=== PATIENT | female | born 1990 | race American Indian/Alaskan Native ===

== ENCOUNTER 2017-08-22 17:29 | Inpatient (IN) | payer OTHER ==
[2017-08-22 18:56] LABS: Basophils % (Auto) 0.2 % (0.0-1.8); Hemoglobin 14.3 gm/dl (10.1-14.3); Mean Corpuscular HGB Conc 32 % (30-34); Mean Corpuscular Hemoglobin 26 pg (28-32); Mean Corpuscular Volume 81 fl (79-97); Platelet Count 320 K/mm3 (140-440); Red Blood Count 5.41 M/mm3 (3.65-5.03); Red Cell Distribution Width 14.4 % (13.2-15.2); White Blood Count 18.6 K/mm3 (4.5-11.0)
[2017-08-22 19:06] LABS: Alanine Aminotransferase 108 units/L (7-56); Albumin 4.2 g/dL (3.9-5); Albumin/Globulin Ratio 1.1 %; Alkaline Phosphatase 130 units/L (35-129); BUN/Creatinine Ratio 23; Blood Urea Nitrogen 16 mg/dL (7-17); Calcium 9.4 mg/dL (8.4-10.2); Carbon Dioxide 25 mmol/L (22-30); Glucose 138 mg/dL (65-100); Total Protein 8.2 g/dL (6.3-8.2)
[2017-08-22 19:07] LABS: Anion Gap 20 mmol/L; Potassium 3.8 mmol/L (3.6-5.0); Sodium 136 mmol/L (137-145)
[2017-08-22 19:57] LABS: Lipase 858 units/L (13-60)
[2017-08-23] MEDS ORDERED: MORPHINE IV ONE (00:25)
[2017-08-23] MEDS ORDERED: NACL 0.9% 1000 ML 1,000 ML IV ONE ×2 (00:25→13:50)
[2017-08-23] MEDS ORDERED: ZOFRAN IV ONE (00:26)
--- NOTE | 2017-08-23 00:41 | Emergency Department Report ---
ED Abdominal Pain HPI - General Chief Complaint: Abdominal Pain Stated Complaint: ABD.,BACK PAIN,N/V Time Seen by Provider: 08/23/17 00:25 Source: patient Mode of arrival: Ambulatory Limitations: No Limitations - History of Present Illness Initial Comments: 27-year-old female past medical history diabetes uncontrolled, PCOS, obesity presents with complaint of one day of worsening abdominal pain radiating to the back with associated nausea and vomiting. Patient states that pain is intermittent sharp burning located in her epigastric region. Denies chest pain shortness of breath diarrhea. No recent travel. Pain currently 8 out of 10 MD Complaint: abdominal pain -: This morning Location: epigastric Radiation: epigastric Severity: severe Severity scale (0 -10): 8 Quality: sharp Consistency: intermittent - Related Data Allergies Allergy/AdvReac Type Severity Reaction Status Date / Time No Known Allergies Allergy Unverified 08/22/17 18:23 ED Review of Systems ROS: Stated complaint: ABD.,BACK PAIN,N/V Other details as noted in HPI Constitutional: denies: chills, fever Eyes: denies: eye pain, eye discharge, vision change ENT: denies: ear pain, throat pain Respiratory: denies: cough, shortness of breath, wheezing Cardiovascular: denies: chest pain, palpitations Endocrine: no symptoms reported Gastrointestinal: abdominal pain, nausea, vomiting. denies: diarrhea Genitourinary: denies: urgency, dysuria, discharge Musculoskeletal: denies: back pain, joint swelling, arthralgia Skin: denies: rash, lesions Neurological: denies: headache, weakness, paresthesias Psychiatric: denies: anxiety, depression Hematological/Lymphatic: denies: easy bleeding, easy bruising ED Past Medical Hx - Past Medical History Previous Medical History?: Yes Hx Diabetes: Yes - Surgical History Past Surgical History?: No - Social History Smoking Status: Never Smoker Substance Use Type: None ED Physical Exam - General Limitations: No Limitations General appearance: alert, in no apparent distress - Head Head exam: Present: atraumatic, normocephalic - Eye Eye exam: Present: normal appearance, PERRL, EOMI - ENT ENT exam: Present: mucous membranes moist - Neck Neck exam: Present: normal inspection - Respiratory Respiratory exam: Present: normal lung sounds bilaterally. Absent: respiratory distress - Cardiovascular Cardiovascular Exam: Present: regular rate, normal rhythm. Absent: systolic murmur, diastolic murmur, rubs, gallop - GI/Abdominal GI/Abdominal exam: Present: tenderness (tenderness in epigastric region on palpation), normal bowel sounds - Extremities Exam Extremities exam: Present: normal inspection - Back Exam Back exam: Present: normal inspection - Neurological Exam Neurological exam: Present: alert, oriented X3, CN II-XII intact, normal gait - Psychiatric Psychiatric exam: Present: normal affect, normal mood - Skin Skin exam: Present: warm, dry, intact, normal color. Absent: rash ED Course Vital Signs 08/22/17 18:20 Temperature 99 F Pulse Rate 101 H Respiratory 18 Rate Blood Pressure 148/85 O2 Sat by Pulse 97 Oximetry ED Medical Decision Making - Lab Data Result diagrams: 08/22/17 18:29 08/22/17 18:29 - Medical Decision Making A/P: Acute pancreatitis, abdominal pain with nausea and vomiting 1-case discussed with Dr. Holder 2-analgesia, nothing by mouth, IV fluids, antiemetics 3-pending the CT report 4- Critical care attestation.: If time is entered above; I have spent that time in minutes in the direct care of this critically ill patient, excluding procedure time. ED Disposition Clinical Impression: Elevated lipase Acute pancreatitis Qualifiers: Pancreatitis type: unspecified pancreatitis type Acute pancreatitis complication: unspecified Qualified Code(s): K85.90 - Acute pancreatitis without necrosis or infection, unspecified Is pt being admited?: No Does the pt Need Aspirin: No Condition: Stable Instructions: Abdominal Pain (ED) Referrals: PRIMARY CARE, [Primary Care Provider] - 3-5 Days
[2017-08-23 00:57] LABS: Bilirubin,Urine NEG (Negative)
[2017-08-23 00:58] LABS: Blood,Urine NEG (Negative); Ketones,Urine NEG (Negative); Leukocyte Esterase,Urine TR (Negative); Mucus,Urine FEW /HPF; Nitrite,Urine NEG (Negative); Urobilinogen,Urine < 2.0 mg/dL (<2.0)
[2017-08-23] MEDS ORDERED: NACL ONE (01:23)
--- NOTE | 2017-08-23 01:28 | Emergency Department Report ---
Chief Complaint: Abdominal Pain Stated Complaint: ABD.,BACK PAIN,N/V Time Seen by Provider: 08/23/17 00:25 - HPI History of Present Illness: 27-year-old female past medical history diabetes uncontrolled, PCOS, obesity presents with complaint of one day of worsening abdominal pain radiating to the back with associated nausea and vomiting. Patient states that pain is intermittent sharp burning located in her epigastric region. Denies chest pain shortness of breath diarrhea. No recent travel. Pain currently 8 out of 10 - ROS Review of Systems: Nausea vomiting and epigastric pain today - Exam Vital Signs: Vital Signs 08/22/17 08/23/17 18:20 01:03 Temperature 99 F 99.0 F Pulse Rate 101 H 89 Respiratory 18 18 Rate Blood Pressure 148/85 Blood Pressure 127/73 [Right] O2 Sat by Pulse 97 100 Oximetry Physical Exam: Epigastric pain on palpation, heart S1-S2, lungs clear to auscultation MSE screening note: Focused history and physical exam performed. Due to findings the following was ordered: Screening Assessment/Plan/Differential Dx: Abdominal pain, nausea, concern for acute pancreatitis 1- This initial assessment/diagnostic orders/clinical plan/ treatment(s) is/are subject to change based on pt's health status, clinical progression and re- assessment by fellow clinical providers in the ED. Further treatment and workup at subsequent clinical provers discretion. Patient/guardians urged not to elope from ED as their condition may be serious if not clinically assessed and managed. 2-lipase elevated will order CT with contrast of abdomen 3-analgesia, nothing by mouth, IV fluids, antiemetics 4-case briefly discussed with ED attending ED Medical Decision Making - Lab Data Result diagrams: 08/22/17 18:29 08/22/17 18:29 ED Disposition for MSE Clinical Impression: Elevated lipase Acute pancreatitis Qualifiers: Pancreatitis type: unspecified pancreatitis type Acute pancreatitis complication: unspecified Qualified Code(s): K85.90 - Acute pancreatitis without necrosis or infection, unspecified Condition: Stable Instructions: Abdominal Pain (ED) Referrals: PRIMARY CARE, [Primary Care Provider] - 3-5 Days
--- NOTE | 2017-08-23 02:02 | Cat Scan Report ---
FINAL REPORT EXAM: CT ABDOMEN PELVIS W CON HISTORY: ? pancreatitis elevated lfts, lipase, epigastric p TECHNIQUE: Routine axial imaging was obtained of the abdomen and pelvis following the intravenous injection of 100 cc of Omnipaque 350. Sagittal and coronal reconstructions were reviewed along with axial delayed images. FINDINGS: The lung bases are clear. Pleural fluid is not seen. There are inflammatory changes around the entire pancreas consisting of peripancreatic edema. The findings are compatible with acute pancreatitis. There is no evidence of pancreatic necrosis or pseudocyst. The gallbladder is normal in size and contains multiple stones. There are no secondary signs of acute cholecystitis. There is no evidence of a stone in the biliary tree or biliary tree dilatation. The liver, adrenal glands and spleen appear normal. The kidneys enhance normally. The vascular structures enhance normally. The bowel loops are normal in caliber and course. The appendix is not enlarged. There is minimal free fluid in the cul-de-sac. The uterus and bladder appear normal. The skeletal structures appear well maintained. IMPRESSION: Acute pancreatitis. No evidence of pancreatic necrosis or pseudocyst. Gallstones. No secondary signs of acute cholecystitis or biliary tree dilatation. Minimal free fluid in the cul-de-sac.
--- NOTE | 2017-08-23 02:03 | Emergency Department Report ---
ED General Adult HPI - General Chief complaint: Abdominal Pain Stated complaint: ABD.,BACK PAIN,N/V Time Seen by Provider: 08/23/17 00:25 Source: patient Mode of arrival: Ambulatory Limitations: No Limitations - History of Present Illness Initial comments: Patient is a 27-year-old female past medical history of obesity who presents with abdominal pain. She says that she has had some nausea and abdominal pain that radiates to her back the pain as a 9 out of 10 as an achy type of pain nothing makes it better or worse. She it is located above her arm like us it was gradual and now is constant. She also states that she has had some nausea and several episodes of vomiting. Her vomit has been nonbloody and nonbilious. She denies any chest pain. She also denies any excessive drinking. Severity scale (0 -10): 3 - Related Data Allergies Allergy/AdvReac Type Severity Reaction Status Date / Time No Known Allergies Allergy Verified 08/23/17 01:22 ED Review of Systems ROS: Stated complaint: ABD.,BACK PAIN,N/V Other details as noted in HPI Constitutional: denies: chills, fever Eyes: denies: eye pain, eye discharge, vision change ENT: denies: ear pain, throat pain Respiratory: denies: cough, shortness of breath, wheezing Cardiovascular: denies: chest pain, palpitations Endocrine: no symptoms reported Gastrointestinal: abdominal pain, nausea, vomiting. denies: diarrhea Genitourinary: denies: urgency, dysuria, discharge Musculoskeletal: denies: back pain, joint swelling, arthralgia Skin: denies: rash, lesions Neurological: denies: headache, weakness, paresthesias Psychiatric: denies: anxiety, depression Hematological/Lymphatic: denies: easy bleeding, easy bruising ED Past Medical Hx - Past Medical History Previous Medical History?: Yes Hx Diabetes: Yes - Surgical History Past Surgical History?: No - Social History Smoking Status: Never Smoker Substance Use Type: None ED Physical Exam - General Limitations: No Limitations General appearance: alert, in no apparent distress - Head Head exam: Present: atraumatic, normocephalic - Eye Eye exam: Present: normal appearance - ENT ENT exam: Present: mucous membranes moist - Neck Neck exam: Present: normal inspection - Respiratory Respiratory exam: Present: normal lung sounds bilaterally. Absent: respiratory distress - Cardiovascular Cardiovascular Exam: Present: regular rate, normal rhythm. Absent: systolic murmur, diastolic murmur, rubs, gallop - GI/Abdominal GI/Abdominal exam: Present: soft, tenderness, normal bowel sounds - Extremities Exam Extremities exam: Present: normal inspection - Back Exam Back exam: Present: normal inspection - Neurological Exam Neurological exam: Present: alert, oriented X3 - Psychiatric Psychiatric exam: Present: normal affect, normal mood - Skin Skin exam: Present: warm, dry, intact, normal color. Absent: rash ED Course Vital Signs 08/22/17 08/22/17 08/23/17 18:06 18:20 01:03 Temperature 99 F 99.0 F Pulse Rate 107 H 101 H 89 Respiratory 18 18 18 Rate Blood Pressure 148/85 148/85 Blood Pressure 127/73 [Right] O2 Sat by Pulse 98 97 100 Oximetry 08/23/17 08/23/17 01:19 02:14 Temperature Pulse Rate Respiratory 18 Rate Blood Pressure Blood Pressure [Right] O2 Sat by Pulse 99 99 Oximetry ED Medical Decision Making - Lab Data Result diagrams: 08/22/17 18:29 08/22/17 18:29 Lab Results 08/22/17 08/22/17 08/23/17 Range/Units 18:29 18:29 00:38 WBC 18.6 H (4.5-11.0) K/mm3 RBC 5.41 H (3.65-5.03) M/mm3 Hgb 14.3 (10.1-14.3) gm/dl Hct 44.0 H (30.3-42.9) % MCV 81 (79-97) fl MCH 26 L (28-32) pg MCHC 32 (30-34) % RDW 14.4 (13.2-15.2) % Plt Count 320 (140-440) K/mm3 Lymph % (Auto) 8.5 L (13.4-35.0) % [place] % (Auto) 6.5 (0.0-7.3) % Eos % (Auto) 0.0 (0.0-4.3) % Baso % (Auto) 0.2 (0.0-1.8) % Lymph # 1.6 (1.2-5.4) K/mm3 [place] # 1.2 H (0.0-0.8) K/mm3 Eos # 0.0 (0.0-0.4) K/mm3 Baso # 0.0 (0.0-0.1) K/mm3 Seg Neutrophils % 84.8 H (40.0-70.0) % Seg Neutrophils # 15.7 H (1.8-7.7) K/mm3 Sodium 136 L (137-145) mmol/L Potassium 3.8 (3.6-5.0) mmol/L Chloride 95.0 L (98-107) mmol/L Carbon Dioxide 25 (22-30) mmol/L Anion Gap 20 mmol/L BUN 16 (7-17) mg/dL Creatinine 0.7 (0.7-1.2) mg/dL Estimated GFR > 60 ml/min BUN/Creatinine Ratio 23 % Glucose 138 H (65-100) mg/dL Lactic Acid 1.70 (0.7-2.0) mmol/L Calcium 9.4 (8.4-10.2) mg/dL Total Bilirubin 0.30 (0.1-1.2) mg/dL AST 66 H (5-40) units/L ALT 108 H (7-56) units/L Alkaline Phosphatase 130 H (35-129) units/L Total Protein 8.2 (6.3-8.2) g/dL Albumin 4.2 (3.9-5) g/dL Albumin/Globulin Ratio 1.1 % Lipase 858 H (13-60) units/L Urine Color (Yellow) Urine Turbidity (Clear) Urine pH (5.0-7.0) Ur Specific [place] (1.003-1.030) Urine Protein (Negative) mg/dL Urine Glucose (UA) (Negative) mg/dL Urine Ketones (Negative) mg/dL Urine Blood (Negative) Urine Nitrite (Negative) Ur Reducing Substances Urine Bilirubin (Negative) Urine Ictotest Urine Urobilinogen (<2.0) mg/dL Ur Leukocyte Esterase (Negative) Urine WBC (Auto) (0.0-6.0) /HPF Urine RBC (Auto) (0.0-6.0) /HPF U Epithel Cells (Auto) (0-13.0) /HPF Urine WBC Clumps /HPF Hyaline Casts /LPF Urine Mucus /HPF Urine HCG, Qual (Negative) 11/30/17 11/30/17 Range/Units 00:38 Unknown WBC (4.5-11.0) K/mm3 RBC (3.65-5.03) M/mm3 Hgb (10.1-14.3) gm/dl Hct (30.3-42.9) % MCV (79-97) fl MCH (28-32) pg MCHC (30-34) % RDW (13.2-15.2) % Plt Count (140-440) K/mm3 Lymph % (Auto) (13.4-35.0) % [place] % (Auto) (0.0-7.3) % Eos % (Auto) (0.0-4.3) % Baso % (Auto) (0.0-1.8) % Lymph # (1.2-5.4) K/mm3 [place] # (0.0-0.8) K/mm3 Eos # (0.0-0.4) K/mm3 Baso # (0.0-0.1) K/mm3 Seg Neutrophils % (40.0-70.0) % Seg Neutrophils # (1.8-7.7) K/mm3 Sodium (137-145) mmol/L Potassium (3.6-5.0) mmol/L Chloride (98-107) mmol/L Carbon Dioxide (22-30) mmol/L Anion Gap mmol/L BUN (7-17) mg/dL Creatinine (0.7-1.2) mg/dL Estimated GFR ml/min BUN/Creatinine Ratio % Glucose (65-100) mg/dL Lactic Acid (0.7-2.0) mmol/L Calcium (8.4-10.2) mg/dL Total Bilirubin (0.1-1.2) mg/dL AST (5-40) units/L ALT (7-56) units/L Alkaline Phosphatase (35-129) units/L Total Protein (6.3-8.2) g/dL Albumin (3.9-5) g/dL Albumin/Globulin Ratio % Lipase 640 H (13-60) units/L Urine Color Yellow (Yellow) Urine Turbidity Clear (Clear) Urine pH 6.0 (5.0-7.0) Ur Specific [place] 1.032 H (1.003-1.030) Urine Protein 30 mg/dl (Negative) mg/dL Urine Glucose (UA) Neg (Negative) mg/dL Urine Ketones Neg (Negative) mg/dL Urine Blood Neg (Negative) Urine Nitrite Neg (Negative) Ur Reducing Substances Not Reportable Urine Bilirubin Neg (Negative) Urine Ictotest Not Reportable Urine Urobilinogen < 2.0 (<2.0) mg/dL Ur Leukocyte Esterase Tr (Negative) Urine WBC (Auto) 19.0 H (0.0-6.0) /HPF Urine RBC (Auto) 9.0 (0.0-6.0) /HPF U Epithel Cells (Auto) 80.0 H (0-13.0) /HPF Urine WBC Clumps Few /HPF Hyaline Casts 2 /LPF Urine Mucus Few /HPF Urine HCG, Qual Negative (Negative) - Radiology Data Radiology results: report reviewed, image reviewed CT scan of abdomen: Shows findings of acute pancreatitis - Medical Decision Making Chief medical diagnosis: Pancreatitis Differential medical diagnosis: UTI, GERD, cholelithiasis, cholecystitis LIPASE CBC CMP IV FLUIDS AND IV PAIN MEDICATIONS CT SCAN IS REVEALING FOR PANCREATITIS DISCUSSed with the patient that since she is still having severe abdominal pain she will be admitted to the hospital. Patient agrees with plan. Discussed case with hospitalist and hospitalist agrees with admission. Critical care attestation.: If time is entered above; I have spent that time in minutes in the direct care of this critically ill patient, excluding procedure time. ED Disposition Clinical Impression: Elevated lipase Acute pancreatitis Qualifiers: Pancreatitis type: unspecified pancreatitis type Acute pancreatitis complication: unspecified Qualified Code(s): K85.90 - Acute pancreatitis without necrosis or infection, unspecified Nausea & vomiting Qualifiers: Vomiting type: unspecified Vomiting Intractability: unspecified Qualified Code( s): R11.2 - Nausea with vomiting, unspecified Disposition: OP ADMIT IP TO THIS HOSP Is pt being admited?: Yes Does the pt Need Aspirin: No Condition: Stable Instructions: Abdominal Pain (ED) Referrals: PRIMARY CARE,MD [Primary Care Provider] - 3-5 Days
--- NOTE | 2017-08-23 02:25 | History and Physical Report ---
History of Present Illness Chief complaint: My stomach hurts History of present illness: 27 YO Female with MO, DM, Metabolic Syndrome presents to ED for evaluation. Pt states that she has experienced abdominal pain for the past 2 days with worsening symptoms over the past 12 hours. Pt states that her pain is 9/10, achy, radiates to her back, and is associated with nausea, and multiple episodes of nonbloody/non bilious vomiting. Pt states that the pain is constant , and improved with pain medication. Pt denies ETOH use, Trauma, Fever,Chills, Palpitations, CP, ingestion of food/water from new or different sources, BRBPR, unintentional weight loss, night sweats, blood in stool, hematuria, productive cough, or recent ill contacts. Pt seen and evaluated in ED and found to have evidence of sepsis, and acute pancreatitis. Pt initiated on sepsis protocol, and pain control for acute pancreatitis. Past History Past Medical History: diabetes, other (MO, Metabolic Syndrome.) Past Surgical History: No surgical history, Other (reviewed) Social history: single. denies: smoking, alcohol abuse, prescription drug abuse , IV drug use Family history: hypertension Medications and Allergies Allergies Allergy/AdvReac Type Severity Reaction Status Date / Time No Known Allergies Allergy Verified 08/23/17 01:22 Review of Systems Constitutional: no weight loss, no weight gain, no fever, no chills Ears, nose, mouth and throat: no ear pain, no ear discharge, no tinnitis, no decreased hearing, no nose pain, no nasal congestion, no nasal discharge Breasts: no change in shape, no swelling, no mass Cardiovascular: no chest pain, no orthopnea, no palpitations, no rapid/ irregular heart beat Respiratory: no cough, no cough with sputum, no excessive sputum, no hemoptysis Gastrointestinal: abdominal pain, nausea, vomiting, no change in bowel habits, no hematemesis, no coffee ground emesis, no BRBPR, no melena, no excessive gas, no jaundice, no dyspepsia/bloating, no early satiety Genitourinary Female: no pelvic pain, no flank pain, no menorrhagia, no dysuria , no urinary frequency Rectal: no pain, no incontinence, no bleeding Musculoskeletal: no neck stiffness, no neck pain, no shooting arm pain, no arm numbness/tingling, no low back pain, no shooting leg pain, no leg numbness/ tingling Integumentary: no rash, no pruritis, no redness, no sores, no wounds, no jaundice Neurological: no head injury, no transient paralysis, no paralysis, no weakness , no parathesias, no numbness, no tingling, no seizures Psychiatric: no anxiety, no memory loss, no change in sleep habits, no sleep disturbances, no insomnia, no hypersomnia, no change in appetite, no change in libido Endocrine: no cold intolerance, no heat intolerance, no polyphagia, no excessive thirst, no polydipsia, no polyuria, no nocturia Hematologic/Lymphatic: no easy bruising, no easy bleeding Allergic/Immunologic: no urticaria, no allergic rhinitis, no wheezing Exam - Constitutional Vitals: Temp Pulse Resp BP Pulse Ox 99.0 F 89 18 127/73 99 08/23/17 01:03 08/23/17 01:03 08/23/17 02:14 08/23/17 01:03 08/23/17 02:14 General appearance: Present: mild distress, obese, disheveled, malodorous - EENT Eyes: Present: PERRL ENT: hearing intact, clear oral mucosa - Neck Neck: Present: supple, normal ROM - Respiratory Respiratory effort: normal Respiratory: bilateral: CTA - Cardiovascular Rhythm: regular Heart Sounds: Present: S1 & S2 - Extremities Extremities: pulses symmetrical, No edema Peripheral Pulses: within normal limits - Abdominal General gastrointestinal: Present: soft, tender, non-distended. Absent: mass, hernia, other Localized gastrointestinal: tender: diffuse, guarding: diffuse Female genitourinary: Present: normal - Rectal Rectal Exam: normal exam-external/orifice - Integumentary Integumentary: Present: clear, warm, dry - Musculoskeletal Musculoskeletal: gait normal, strength equal bilaterally - Psychiatric Psychiatric: appropriate mood/affect, intact judgment & insight - Neurologic Neurologic: CNII-XII intact, moves all extremities Results - Labs CBC & Chem 7: 08/22/17 18:29 08/22/17 18:29 Labs: Abnormal lab results 08/22/17 08/22/17 08/23/17 Range/Units 18:29 18:29 00:38 WBC 18.6 H (4.5-11.0) K/mm3 RBC 5.41 H (3.65-5.03) M/mm3 Hct 44.0 H (30.3-42.9) % MCH 26 L (28-32) pg Lymph % (Auto) 8.5 L (13.4-35.0) % [place] # 1.2 H (0.0-0.8) K/mm3 Seg Neutrophils % 84.8 H (40.0-70.0) % Seg Neutrophils # 15.7 H (1.8-7.7) K/mm3 Sodium 136 L (137-145) mmol/L Chloride 95.0 L (98-107) mmol/L Glucose 138 H (65-100) mg/dL AST 66 H (5-40) units/L ALT 108 H (7-56) units/L Alkaline Phosphatase 130 H (35-129) units/L Lipase 858 H 640 H (13-60) units/L Ur Specific [place] (1.003-1.030) Urine WBC (Auto) (0.0-6.0) /HPF U Epithel Cells (Auto) (0-13.0) /HPF 08/23/ Range/Units Unknown WBC (4.5-11.0) K/mm3 RBC (3.65-5.03) M/mm3 Hct (30.3-42.9) % MCH (28-32) pg Lymph % (Auto) (13.4-35.0) % [place] # (0.0-0.8) K/mm3 Seg Neutrophils % (40.0-70.0) % Seg Neutrophils # (1.8-7.7) K/mm3 Sodium (137-145) mmol/L Chloride (98-107) mmol/L Glucose (65-100) mg/dL AST (5-40) units/L ALT (7-56) units/L Alkaline Phosphatase (35-129) units/L Lipase (13-60) units/L Ur Specific [place] 1.032 H (1.003-1.030) Urine WBC (Auto) 19.0 H (0.0-6.0) /HPF U Epithel Cells (Auto) 80.0 H (0-13.0) /HPF Assessment and Plan - Patient Problems (1) Acute pancreatitis Current Visit: Yes Status: Acute Qualifiers: Pancreatitis type: unspecified pancreatitis type Acute pancreatitis complication: unspecified Qualified Code(s): K85.90 - Acute pancreatitis without necrosis or infection, unspecified Plan to address problem: IVF resuscitation, CT abdomen pelvis, bowel rest, pain control, anti-emetic therapy, lipase in AM. (2) Sepsis Current Visit: Yes Status: Acute Qualifiers: Sepsis type: sepsis due to unspecified organism Qualified Code(s): A41.9 - Sepsis, unspecified organism Plan to address problem: IV abx, IVF resuscitation, monitor uop q shift, serial lactic acid levels, supportive care, blood cultures, urinalysis and cultures (3) UTI (urinary tract infection) Current Visit: Yes Status: Acute Plan to address problem: IV abx, supprotive care, monitor uop q shift. (4) Diabetes Current Visit: Yes Status: Acute Plan to address problem: ADA diet, insulin, accu check (5) DVT prophylaxis Current Visit: Yes Status: Acute
[2017-08-23] MEDS ORDERED: DULCOLAX PR PRN (02:26)
[2017-08-23] MEDS ORDERED: MILK OF MAGNESIA PO PRN (02:26)
[2017-08-23] MEDS ORDERED: TYLENOL PO PRN (02:26)
[2017-08-23] MEDS ORDERED: PROVENTIL IH PRN (02:26)
[2017-08-23] MEDS ORDERED: NACL 0.9% 1000 ML IV ONE (02:26)
--- NOTE | 2017-08-23 03:11 | Ultrasound Report ---
FINAL REPORT EXAM: US ABDOMEN LIMITED HISTORY: RUQ ? gallstone /bile duct dilation TECHNIQUE: Routine sonographic evaluation was obtained of the right upper outer quadrant. FINDINGS: The gallbladder is contracted with diffuse shadowing consistent with stones. Gutierrez sign was not elicited when scanning over the gallbladder. The common bile duct is mildly enlarged 6.5 millimeters. The pancreas is not adequately seen for evaluation. The right kidney is normal size contour and echotexture measuring 10.5 cm x 4.5 cm x 4.7 cm. Free fluid is not seen. IMPRESSION: Gallstones. Mild enlargement of the common bile duct. A distal common bile duct stone cannot be excluded given the history of pancreatitis.
[2017-08-23] MEDS ORDERED: DILAUDID ONE (04:48)
[2017-08-23] MEDS ORDERED: ZOFRAN ONE (04:49)
[2017-08-23] MEDS ORDERED: NACL 0.9% 1000 ML 1,000 ML ONE (04:50)
[2017-08-23] MEDS: DILAUDID IV PRN ×4 (04:53→20:03)
[2017-08-23] MEDS: ZOFRAN IV PRN ×3 (04:55→20:05)
[2017-08-23] MEDS: ZOSYN/NS 4.5GM/100ML 4.5 GM/100 ML VIAL IV SCH ×3 (06:23→21:59)
--- NOTE | 2017-08-23 14:25 | Progress Note ---
<ADA SPAIN - Last Filed: 08/23/17 15:07> Assessment and Plan Assessment and plan: Assessment: Patient seen and evaluated today. Is alert and oriented times 4. No acute distress noted. Pupils equal and reactive to light and accommodation. Neck is without jugular vein distension or any adenopathy. Lungs clear to auscultation bilaterally. Noted with normal heart sound, regular with S1 S2, +2 pulses throughout. No edema or tenderness noted to lower extremities but stated at home have intermittent tingling in both lower extremities. Abdomen noted to be non-distended and tender in the medial and left upper quadrants with hypoactive bowel sounds throughout. Skin warm, dry and intact. Plan: GI: Pancreatitis Continue Antibiotic Therapy NPO: Bowel Rest Pain Management GI Consult Sepsis: IVF: 1000mL NS Bolus IVF: Continuous Infusion of LR @ 125ml/hr Continue to Follow-up Lactic Acid Levels Antibiotic Therapy Diabetes: Accucheck Q6H HgA1C Diabetic Teaching and importance of being compliant with treatment regimen and foow-up care History Interval history: Patient is a 27 year old female with Past medical History of DM 2 present to the ER with complaints of abdominal pain for the past 2 days radiating to back. Symptoms associated with nausea, and multiple episodes of nonbloody/non bilious vomiting. Pt states that the pain is improving with pain medication. Pt denies ETOH use, Trauma, Fever,Chills, Palpitations, CP, ingestion of food/water from new or different sources, unintentional weight loss , night sweats, blood in stool, hematuria, productive cough, or recent ill contacts. Patient stated is diabetic and is supposed to be taking Metformin but has not be compliant with medication regimen because do not have a PCP and don' t think can afford medication. Patient also stated has not been checking blood glucose level either because do not have a blood glucose machine. Denies any polyuria, polydipsia or polyphagia but did complained of having intermittent tingling to bilateral lower extremities. Pt admitted to Med-Surg unit with diagnosis of acute pancreatitis and Sepsis with lactic acid noted at 3.90 today. Hospitalist Physical - Constitutional Vitals: Temp Pulse Resp BP Pulse Ox 98.4 F 88 16 129/72 97 08/23/17 07:23 08/23/17 07:23 08/23/17 07:23 08/23/17 07:23 08/23/17 07:23 General appearance: Present: no acute distress, mild distress, obese, disheveled , malodorous - EENT Eyes: Present: PERRL ENT: hearing intact, clear oral mucosa, dentition normal - Neck Neck: Present: normal ROM - Respiratory Respiratory effort: normal Respiratory: bilateral: CTA - Cardiovascular Rhythm: regular Heart Sounds: Present: S1 & S2. Absent: gallop, systolic murmur, diastolic murmur, rub - Extremities Extremities: pulses intact, pulses symmetrical, No edema, normal temperature, normal color, Full ROM Peripheral Pulses: within normal limits - Abdominal General gastrointestinal: soft, tender (to mid and left upper quadrants), non- distended, hypoactive bowel sounds - Integumentary Integumentary: Present: clear, warm, dry, normal turgor. Absent: jaundice, rash , pale - Psychiatric Psychiatric: appropriate mood/affect Results - Labs CBC & Chem 7: 08/22/17 18:29 08/22/17 18:29 Labs: Laboratory Last Values WBC 18.6 K/mm3 (4.5-11.0) H 08/22/17 18: RBC 5.41 M/mm3 (3.65-5.03) H 08/22/17 18: Hgb 14.3 gm/dl (10.1-14.3) 08/22/17 18: Hct 44.0 % (30.3-42.9) H 08/22/17 18: MCV 81 fl (79-97) 08/22/17 18: MCH 26 pg (28-32) L 08/22/17 18: MCHC 32 % (30-34) 08/22/17 18: RDW 14.4 % (13.2-15.2) 08/22/17 18: Plt Count 320 K/mm3 (140-440) 08/22/17 18: Lymph % (Auto) 8.5 % (13.4-35.0) L 08/22/17 18: [place] % (Auto) 6.5 % (0.0-7.3) 08/22/17 18: Eos % (Auto) 0.0 % (0.0-4.3) 08/22/17 18: Baso % (Auto) 0.2 % (0.0-1.8) 08/22/17 18: Lymph # 1.6 K/mm3 (1.2-5.4) 08/22/17 18: [place] # 1.2 K/mm3 (0.0-0.8) H 08/22/17 18: Eos # 0.0 K/mm3 (0.0-0.4) 08/22/17 18: Baso # 0.0 K/mm3 (0.0-0.1) 08/22/17 18: Seg Neutrophils % 84.8 % (40.0-70.0) H 08/22/17 18: Seg Neutrophils # 15.7 K/mm3 (1.8-7.7) H 08/22/17 18:29 Sodium 136 mmol/L (137-145) L 08/22/17 18: Potassium 3.8 mmol/L (3.6-5.0) 08/22/17 18: Chloride 95.0 mmol/L (98-107) L 08/22/17 18: Carbon Dioxide 25 mmol/L (22-30) 08/22/17 18:29 Anion Gap 20 mmol/L 08/22/17 18:29 BUN 16 mg/dL (7-17) 08/22/17 18: Creatinine 0.7 mg/dL (0.7-1.2) 08/22/17 18:29 Estimated GFR > 60 ml/min 08/22/17 18:29 BUN/Creatinine Ratio 23 % 08/22/17 18: Glucose 138 mg/dL (65-100) H 08/22/17 18:29 Lactic Acid 3.90 mmol/L (0.7-2.0) H* 08/23/17 11:07 Calcium 9.4 mg/dL (8.4-10.2) 08/22/17 18:29 Total Bilirubin 0.30 mg/dL (0.1-1.2) 08/22/17 18:29 AST 66 units/L (5-40) H 08/22/17 18:29 ALT 108 units/L (7-56) H 08/22/17 18:29 Alkaline Phosphatase 130 units/L (35-129) H 08/22/17 18:29 Total Protein 8.2 g/dL (6.3-8.2) 08/22/17 18:29 Albumin 4.2 g/dL (3.9-5) 08/22/17 18:29 Albumin/Globulin Ratio 1.1 % 08/22/17 18:29 Triglycerides 91 mg/dL (2-149) 08/23/17 11:07 Cholesterol 152 mg/dL (50-199) 08/23/17 11:07 LDL Cholesterol Direct 87 mg/dL (50-130) 08/23/17 11:07 HDL Cholesterol 47 mg/dL (40-59) 08/23/17 11:07 Cholesterol/HDL Ratio 3.23 % 08/23/17 11:07 Lipase 640 units/L (13-60) H 08/23/17 00:38 Urine Color Yellow (Yellow) 08/23/17 Unknown Urine Turbidity Clear (Clear) 08/23/17 Unknown Urine pH 6.0 (5.0-7.0) 08/23/17 Unknown Ur Specific [place] 1.032 (1.003-1.030) H 08/23/17 Unknown Urine Protein 30 mg/dl mg/dL (Negative) 08/23/17 Unknown Urine Glucose (UA) Neg mg/dL (Negative) 08/23/17 Unknown Urine Ketones Neg mg/dL (Negative) 08/23/17 Unknown Urine Blood Neg (Negative) 08/23/17 Unknown Urine Nitrite Neg (Negative) 08/23/17 Unknown Ur Reducing Substances Not Reportable 08/23/17 Unknown Urine Bilirubin Neg (Negative) 08/23/17 Unknown Urine Ictotest Not Reportable 08/23/17 Unknown Urine Urobilinogen < 2.0 mg/dL (<2.0) 08/23/17 Unknown Ur Leukocyte Esterase Tr (Negative) 08/23/17 Unknown Urine WBC (Auto) 19.0 /HPF (0.0-6.0) H 08/23/17 Unknown Urine RBC (Auto) 9.0 /HPF (0.0-6.0) 08/23/17 Unknown U Epithel Cells (Auto) 80.0 /HPF (0-13.0) H 08/23/17 Unknown Urine WBC Clumps Few /HPF 08/23/17 Unknown Hyaline Casts 2 /LPF 08/23/17 Unknown Urine Mucus Few /HPF 08/23/17 Unknown Urine HCG, Qual Negative (Negative) 08/23/17 Unknown Plasma/Serum Alcohol < 0.01 gm% (0-0.07) 08/23/17 02:46 Blood Type A POSITIVE 08/23/17 02:48 Antibody Screen Negative 08/23/17 02:48 <JOSE LUIS JERONIMO - Last Filed: 08/23/17 15:43> Assessment and Plan Assessment and plan: I saw and evaluated the patient. I agree with the findings and the plan of care as documented in the Nurse Practitioner's~note, with the following corrections and additions. No clear evidence of Sepsis, Likely SIRS secondary to Pancreatitis. Per patient has had a prior episode. Has Hirsutism, Metabolic syndrome Morbid obesity with BMI >45 -Weight loss counselling provided in detail -Recheck Lactic acid -Restart diet when able to tolerated -Continue supportive care -Will give a bolus of IVF. Plan discussed with the patient in detail Hospitalist Physical - Constitutional Vitals: Temp Pulse Resp BP Pulse Ox 98.4 F 88 16 129/72 97 08/23/17 07:23 08/23/17 07:23 08/23/17 07:23 08/23/17 07:23 08/23/17 07:23 Results - Labs CBC & Chem 7: 08/22/17 18:29 08/22/17 18:29 Labs: Laboratory Last Values WBC 18.6 K/mm3 (4.5-11.0) H 08/22/17 18:29 RBC 5.41 M/mm3 (3.65-5.03) H 08/22/17 18:29 Hgb 14.3 gm/dl (10.1-14.3) 08/22/17 18: Hct 44.0 % (30.3-42.9) H 08/22/17 18: MCV 81 fl (79-97) 08/22/17 18: MCH 26 pg (28-32) L 08/22/17 18: MCHC 32 % (30-34) 08/22/17 18: RDW 14.4 % (13.2-15.2) 08/22/17 18:29 Plt Count 320 K/mm3 (140-440) 08/22/17 18:29 Lymph % (Auto) 8.5 % (13.4-35.0) L 08/22/17 18:29 Bertie % (Auto) 6.5 % (0.0-7.3) 08/22/17 18: Eos % (Auto) 0.0 % (0.0-4.3) 08/22/17 18: Baso % (Auto) 0.2 % (0.0-1.8) 08/22/17 18: Lymph # 1.6 K/mm3 (1.2-5.4) 08/22/17 18: [place] # 1.2 K/mm3 (0.0-0.8) H 08/22/17 18: Eos # 0.0 K/mm3 (0.0-0.4) 08/22/17 18: Baso # 0.0 K/mm3 (0.0-0.1) 08/22/17 18: Seg Neutrophils % 84.8 % (40.0-70.0) H 08/22/17 18: Seg Neutrophils # 15.7 K/mm3 (1.8-7.7) H 08/22/17 18:29 Sodium 136 mmol/L (137-145) L 08/22/17 18:29 Potassium 3.8 mmol/L (3.6-5.0) 08/22/17 18: Chloride 95.0 mmol/L (98-107) L 08/22/17 18: Carbon Dioxide 25 mmol/L (22-30) 08/22/17 18: Anion Gap 20 mmol/L 08/22/17 18:29 BUN 16 mg/dL (7-17) 08/22/17 18:29 Creatinine 0.7 mg/dL (0.7-1.2) 08/22/17 18:29 Estimated GFR > 60 ml/min 08/22/17 18:29 BUN/Creatinine Ratio 23 % 08/22/17 18:29 Glucose 138 mg/dL (65-100) H 08/22/17 18:29 Lactic Acid 3.90 mmol/L (0.7-2.0) H* 08/23/17 11:07 Calcium 9.4 mg/dL (8.4-10.2) 08/22/17 18: Total Bilirubin 0.30 mg/dL (0.1-1.2) 08/22/17 18:29 AST 66 units/L (5-40) H 08/22/17 18:29 ALT 108 units/L (7-56) H 08/22/17 18:29 Alkaline Phosphatase 130 units/L (35-129) H 08/22/17 18:29 Total Protein 8.2 g/dL (6.3-8.2) 08/22/17 18:29 Albumin 4.2 g/dL (3.9-5) 08/22/17 18:29 Albumin/Globulin Ratio 1.1 % 08/22/17 18:29 Triglycerides 91 mg/dL (2-149) 08/23/17 11:07 Cholesterol 152 mg/dL (50-199) 08/23/17 11:07 LDL Cholesterol Direct 87 mg/dL (50-130) 08/23/17 11:07 HDL Cholesterol 47 mg/dL (40-59) 08/23/17 11:07 Cholesterol/HDL Ratio 3.23 % 08/23/17 11:07 Lipase 640 units/L (13-60) H 08/23/17 00:38 Urine Color Yellow (Yellow) 08/23/17 Unknown Urine Turbidity Clear (Clear) 08/23/17 Unknown Urine pH 6.0 (5.0-7.0) 08/23/17 Unknown Ur Specific [place] 1.032 (1.003-1.030) H 08/23/17 Unknown Urine Protein 30 mg/dl mg/dL (Negative) 08/23/17 Unknown Urine Glucose (UA) Neg mg/dL (Negative) 08/23/17 Unknown Urine Ketones Neg mg/dL (Negative) 08/23/17 Unknown Urine Blood Neg (Negative) 08/23/17 Unknown Urine Nitrite Neg (Negative) 08/23/17 Unknown Ur Reducing Substances Not Reportable 08/23/17 Unknown Urine Bilirubin Neg (Negative) 08/23/17 Unknown Urine Ictotest Not Reportable 08/23/17 Unknown Urine Urobilinogen < 2.0 mg/dL (<2.0) 08/23/17 Unknown Ur Leukocyte Esterase Tr (Negative) 08/23/17 Unknown Urine WBC (Auto) 19.0 /HPF (0.0-6.0) H 08/23/17 Unknown Urine RBC (Auto) 9.0 /HPF (0.0-6.0) 08/23/17 Unknown U Epithel Cells (Auto) 80.0 /HPF (0-13.0) H 08/23/17 Unknown Urine WBC Clumps Few /HPF 08/23/17 Unknown Hyaline Casts 2 /LPF 08/23/17 Unknown Urine Mucus Few /HPF 08/23/17 Unknown Urine HCG, Qual Negative (Negative) 08/23/17 Unknown Plasma/Serum Alcohol < 0.01 gm% (0-0.07) 08/23/17 02:46 Blood Type A POSITIVE 08/23/17 02:48 Antibody Screen Negative 08/23/17 02:48
[2017-08-23] MEDS: LACTATED RINGERS 1,000 ML IV SCH (14:41)
[2017-08-24] MEDS: DILAUDID IV PRN ×5 (01:02→21:09)
[2017-08-24 01:17] LABS: Urine Drugs of Abuse Note Disclamer
[2017-08-24] MEDS: LACTATED RINGERS 1,000 ML IV SCH ×3 (02:52→21:12)
[2017-08-24] MEDS: ZOSYN/NS 4.5GM/100ML 4.5 GM/100 ML VIAL IV SCH ×3 (05:13→21:14)
[2017-08-24 07:30] LABS: Basophils % (Auto) 0.3 % (0.0-1.8); Eosinophils % (Auto) 0.6 % (0.0-4.3); Hematocrit 35.6 % (30.3-42.9); Hemoglobin 11.1 gm/dl (10.1-14.3); Mean Corpuscular HGB Conc 31 % (30-34); Mean Corpuscular Volume 82 fl (79-97); Platelet Count 246 K/mm3 (140-440); Red Blood Count 4.35 M/mm3 (3.65-5.03); Red Cell Distribution Width 14.2 % (13.2-15.2); White Blood Count 15.6 K/mm3 (4.5-11.0)
[2017-08-24 07:32] LABS: Mean Corpuscular Hemoglobin 25 pg (28-32)
[2017-08-24 07:42] LABS: Alanine Aminotransferase 39 units/L (7-56); Albumin 3.1 g/dL (3.9-5); Alkaline Phosphatase 78 units/L (35-129); Anion Gap 16 mmol/L; BUN/Creatinine Ratio 20; Blood Urea Nitrogen 16 mg/dL (7-17); Calcium 7.9 mg/dL (8.4-10.2); Carbon Dioxide 25 mmol/L (22-30); Chloride 103.3 mmol/L (98-107); Glucose 88 mg/dL (65-100); Potassium 3.7 mmol/L (3.6-5.0); Sodium 141 mmol/L (137-145); Total Protein 6.3 g/dL (6.3-8.2)
--- NOTE | 2017-08-24 16:29 | Progress Note ---
Assessment and Plan Assessment and plan: Patient is a 27 year old female with Past medical History of DM 2 present to the ER with complaints of abdominal pain for the past 2 days radiating to back. Symptoms associated with nausea, and multiple episodes of nonbloody/non bilious vomiting. Pt states that the pain is improving with pain medication. Pt denies ETOH use, Trauma, Fever,Chills, Palpitations, CP, ingestion of food/water from new or different sources, unintentional weight loss , night sweats, blood in stool, hematuria, productive cough, or recent ill contacts. Although patient has been on metformin likely for metabolic syndrome and also for possible PCOS she states she has not been taking this. Acute pancreatitis Peritoneal irritation secondary to acute pancreatitis SIRS secondary to Pancreatitis. Gallstone with no acute cholecystitis Hirsutism, possible overlying the PCOS Metabolic syndrome Morbid obesity with BMI >45 Plan -Continue supportive care, supportive fluids. Again patient denies EtOH use. Lipid follow-up. Is within normal limits. -Advised to remain nothing by mouth -We'll increase pain medication dose due to patient's persistent pain -If no improvements will proceed with an MRCP although LFTs appear normal. -Weight loss counselling provided in detail -Advised patient that she will benefit from cholecystectomy once pancreatitis is resolved. -Continue antibiotic therapy -Recheck Lactic acid -Restart diet when able to tolerated -Continue supportive care -Will give a bolus of IVF. -DVT and GI prophylaxis -Plan discussed with the patient and family in detail -A1c is 5.6 Doubt diabetes History Interval history: Patient seen and examined in no acute distress to complaints of pain radiates into the back they have attending intensity and constant. Currently the patient this is not aggravated by eating as She is drinking clear liquids. Although I did monitor her grimace while drinking and I did advice to keep stay nothing by mouth. Hospitalist Physical - Physical exam Narrative exam: VITAL SIGNS: Reviewed. GENERAL: The patient appeared well nourished and normally developed. Morbidly obese. Appears in mild distress secondary to abdominal pain Vital signs as documented. HEAD: No signs of head trauma. EYES: Pupils are equal. Extraocular motions intact. EARS: Hearing grossly intact. MOUTH: Oropharynx is normal. NECK: No adenopathy, no JVD. CHEST: Chest with clear breath sounds bilaterally. No wheezes, rales, or rhonchi. CARDIAC: Regular rate and rhythm. S1 and S2, without murmurs, gallops, or rubs. VASCULAR: No Edema. Peripheral pulses normal and equal in all extremities. ABDOMEN: Soft, epigastric tenderness. No sign of distention. No rebound or guarding, and no masses palpated. Bowel Sounds normal. MUSCULOSKELETAL: Good range of motion of all major joints. Extremities without clubbing, cyanosis or edema. NEUROLOGIC EXAM: Alert and oriented x 3. No focal sensory or strength deficits. Speech normal. Follows commands. PSYCHIATRIC: Mood normal. SKIN: Male pattern facial hair. - Constitutional Vitals: Temp Pulse Resp BP Pulse Ox 98.4 F 85 18 109/69 100 08/24/17 08:25 08/24/17 08:25 08/24/17 08:25 08/24/17 08:25 08/24/17 12:21 General appearance: Present: obese Results - Labs CBC & Chem 7: 08/24/17 06:27 08/24/17 06:27 Labs: Laboratory Last Values WBC 15.6 K/mm3 (4.5-11.0) H 08/24/17 06:27 RBC 4.35 M/mm3 (3.65-5.03) 08/24/17 06:27 Hgb 11.1 gm/dl (10.1-14.3) D 08/24/17 06:27 Hct 35.6 % (30.3-42.9) D 08/24/17 06:27 MCV 82 fl (79-97) 08/24/17 06:27 MCH 25 pg (28-32) L 08/24/17 06:27 MCHC 31 % (30-34) 08/24/17 06:27 RDW 14.2 % (13.2-15.2) 08/24/17 06:27 Plt Count 246 K/mm3 (140-440) 08/24/17 06:27 Lymph % (Auto) 18.4 % (13.4-35.0) 08/24/17 06:27 [place] % (Auto) 9.2 % (0.0-7.3) H 08/24/17 06:27 Eos % (Auto) 0.6 % (0.0-4.3) 08/24/17 06:27 Baso % (Auto) 0.3 % (0.0-1.8) 08/24/17 06:27 Lymph # 2.9 K/mm3 (1.2-5.4) 08/24/17 06:27 [place] # 1.4 K/mm3 (0.0-0.8) H 08/24/17 06:27 Eos # 0.1 K/mm3 (0.0-0.4) 08/24/17 06:27 Baso # 0.0 K/mm3 (0.0-0.1) 08/24/17 06:27 Seg Neutrophils % 71.5 % (40.0-70.0) H 08/24/17 06:27 Seg Neutrophils # 11.1 K/mm3 (1.8-7.7) H 08/24/17 06:27 Sodium 141 mmol/L (137-145) 08/24/17 06:27 Potassium 3.7 mmol/L (3.6-5.0) 08/24/17 06:27 Chloride 103.3 mmol/L (98-107) 08/24/17 06:27 Carbon Dioxide 25 mmol/L (22-30) 08/24/17 06:27 Anion Gap 16 mmol/L 08/24/17 06:27 BUN 16 mg/dL (7-17) 08/24/17 06:27 Creatinine 0.8 mg/dL (0.7-1.2) 08/24/17 06:27 Estimated GFR > 60 ml/min 08/24/17 06:27 BUN/Creatinine Ratio 20 % 08/24/17 06:27 Glucose 88 mg/dL (65-100) 08/24/17 06:27 POC Glucose 86 (70-105) 08/24/17 11:48 Hemoglobin A1c 5.6 % (4-6) 08/23/17 14:19 Lactic Acid 1.30 mmol/L (0.7-2.0) 08/23/17 19:44 Calcium 7.9 mg/dL (8.4-10.2) L D 08/24/17 06:27 Total Bilirubin 0.70 mg/dL (0.1-1.2) 08/24/17 06:27 AST 16 units/L (5-40) 08/24/17 06:27 ALT 39 units/L (7-56) 08/24/17 06:27 Alkaline Phosphatase 78 units/L (35-129) 08/24/17 06:27 Total Protein 6.3 g/dL (6.3-8.2) D 08/24/17 06:27 Albumin 3.1 g/dL (3.9-5) L 08/24/17 06:27 Albumin/Globulin Ratio 1.0 % 08/24/17 06:27 Triglycerides 91 mg/dL (2-149) 08/23/17 11:07 Cholesterol 152 mg/dL (50-199) 08/23/17 11:07 LDL Cholesterol Direct 87 mg/dL (50-130) 08/23/17 11:07 HDL Cholesterol 47 mg/dL (40-59) 08/23/17 11:07 Cholesterol/HDL Ratio 3.23 % 08/23/17 11:07 Lipase 640 units/L (13-60) H 08/23/17 00:38 Urine Color Yellow (Yellow) 08/23/17 Unknown Urine Turbidity Clear (Clear) 08/23/17 Unknown Urine pH 6.0 (5.0-7.0) 08/23/17 Unknown Ur Specific [place] 1.032 (1.003-1.030) H 08/23/17 Unknown Urine Protein 30 mg/dl mg/dL (Negative) 08/23/17 Unknown Urine Glucose (UA) Neg mg/dL (Negative) 08/23/17 Unknown Urine Ketones Neg mg/dL (Negative) 08/23/17 Unknown Urine Blood Neg (Negative) 08/23/17 Unknown Urine Nitrite Neg (Negative) 08/23/17 Unknown Ur Reducing Substances Not Reportable 08/23/17 Unknown Urine Bilirubin Neg (Negative) 08/23/17 Unknown Urine Ictotest Not Reportable 08/23/17 Unknown Urine Urobilinogen < 2.0 mg/dL (<2.0) 08/23/17 Unknown Ur Leukocyte Esterase Tr (Negative) 08/23/17 Unknown Urine WBC (Auto) 19.0 /HPF (0.0-6.0) H 08/23/17 Unknown Urine RBC (Auto) 9.0 /HPF (0.0-6.0) 08/23/17 Unknown U Epithel Cells (Auto) 80.0 /HPF (0-13.0) H 08/23/17 Unknown Urine WBC Clumps Few /HPF 08/23/17 Unknown Hyaline Casts 2 /LPF 08/23/17 Unknown Urine Mucus Few /HPF 08/23/17 Unknown Urine HCG, Qual Negative (Negative) 08/23/17 Unknown Urine Opiates Screen Presumptive negative 08/23/17 01:00 Urine Methadone Screen Presumptive negative 08/23/17 01:00 Ur Barbiturates Screen Presumptive negative 08/23/17 01:00 Ur Phencyclidine Scrn Presumptive negative 08/23/17 01:00 Ur Amphetamines Screen Presumptive negative 08/23/17 01:00 U Benzodiazepines Scrn Presumptive negative 08/23/17 01:00 Urine Cocaine Screen Presumptive negative 08/23/17 01:00 U Marijuana (THC) Screen Presumptive positive 08/23/17 01:00 Drugs of Abuse Note Disclamer 08/23/17 01:00 Plasma/Serum Alcohol < 0.01 gm% (0-0.07) 08/23/17 02:46 Blood Type A POSITIVE 08/23/17 02:48 Antibody Screen Negative 08/23/17 02:48 - Imaging and Cardiology CT scan - abdomen: image reviewed (pancreatitis) US - abdomen: image reviewed (gallstones)
[2017-08-24] MEDS: ZOFRAN IV PRN (21:11)
[2017-08-25] MEDS: DILAUDID IV PRN ×3 (01:20→14:04)
[2017-08-25] MEDS: ZOSYN/NS 4.5GM/100ML 4.5 GM/100 ML VIAL IV SCH (05:06)
[2017-08-25 07:27] LABS: Hematocrit 34.6 % (30.3-42.9); Hemoglobin 11.2 gm/dl (10.1-14.3); Mean Corpuscular HGB Conc 33 % (30-34); Mean Corpuscular Hemoglobin 27 pg (28-32); Mean Corpuscular Volume 82 fl (79-97); Platelet Count 220 K/mm3 (140-440); Red Blood Count 4.22 M/mm3 (3.65-5.03); Red Cell Distribution Width 14.1 % (13.2-15.2)
[2017-08-25] MEDS: LACTATED RINGERS 1,000 ML IV SCH (07:29)
[2017-08-25 07:45] LABS: Alanine Aminotransferase 32 units/L (7-56); Albumin 3.1 g/dL (3.9-5); Alkaline Phosphatase 84 units/L (35-129); Anion Gap 19 mmol/L; BUN/Creatinine Ratio 17; Blood Urea Nitrogen 12 mg/dL (7-17); Calcium 8.2 mg/dL (8.4-10.2); Carbon Dioxide 26 mmol/L (22-30); Chloride 98.2 mmol/L (98-107); Glucose 82 mg/dL (65-100); Potassium 3.7 mmol/L (3.6-5.0); Sodium 139 mmol/L (137-145); Total Protein 6.3 g/dL (6.3-8.2)
--- NOTE | 2017-08-25 11:18 | Discharge Summary ---
Providers - Providers Date of Admission: 08/23/17 02:26 Attending physician: JOSE LUIS JERONIMO MD Primary care physician: PRODUCT DEVELOPMENT SPECIALIST Hospitalization Reason for admission: acute pancreatitis Condition: Stable Hospital course: Patient is a 27 year old female with Past medical History of DM 2 present to the ER with complaints of abdominal pain for the past 2 days radiating to back. Symptoms associated with nausea, and multiple episodes of nonbloody/non bilious vomiting. Pt states that the pain is improving with pain medication. Pt denies ETOH use, Trauma, Fever,Chills, Palpitations, CP, ingestion of food/water from new or different sources, unintentional weight loss , night sweats, blood in stool, hematuria, productive cough, or recent ill contacts. Although patient has been on metformin likely for metabolic syndrome and also for possible PCOS she states she has not been taking this. The patient was treated with bowel rest, antibiotics, hydration, and pain control. Imaging studies were unremarkable except for gallstones without any acute cholecystitis. There was no indication that patient had passed the stone although this could've happened a few days earlier. I did advise the patient to have a follow-up with surgery for possible cholecystectomy. The patient also was advised about weight loss. She does potentially need to be on metformin for the medical condition which at this point I advised that this should be delayed until pancreatitis is healed. A follow up with woodwind instrument repairer will also be beneficial to this patient. While in the hospital the patient was noted to leave the floor multiple times and sometime was brought up from the cafeteria although she denies eating she was also noted to drink her fluids but was not given to her by staff. This appeared to be bottled water also staff noted the family didn't bring her in some food Jews. I did advice her to be careful about her intake until abdomen is well-healed today her leukocytosis has significantly improved she does not demonstrate any fever at this time is stable for discharge Discharge diagnosis Acute pancreatitis Peritoneal irritation secondary to acute pancreatitis SIRS secondary to Pancreatitis. Gallstone with no acute cholecystitis Hirsutism, possible overlying the PCOS Metabolic syndrome Morbid obesity with BMI >45 Disposition: DC-01 TO HOME OR SELFCARE Time spent for discharge: 35 mins Core Measure Documentation - Palliative Care Palliative Care/ Comfort Measures: Not Applicable - Core Measures Any of the following diagnoses?: none - VTE Discharge Requirements Deep Vein Thrombosis/Pulmonary Embolism Present on Admission: No Exam - Physical Exam Narrative exam: VITAL SIGNS: Reviewed. GENERAL: The patient appeared well nourished and normally developed. Morbidly obese. Appears in mild distress secondary to abdominal pain Vital signs as documented. HEAD: No signs of head trauma. EYES: Pupils are equal. Extraocular motions intact. EARS: Hearing grossly intact. MOUTH: Oropharynx is normal. NECK: No adenopathy, no JVD. CHEST: Chest with clear breath sounds bilaterally. No wheezes, rales, or rhonchi. CARDIAC: Regular rate and rhythm. S1 and S2, without murmurs, gallops, or rubs. VASCULAR: No Edema. Peripheral pulses normal and equal in all extremities. ABDOMEN: Soft, epigastric tenderness. No sign of distention. No rebound or guarding, and no masses palpated. Bowel Sounds normal. MUSCULOSKELETAL: Good range of motion of all major joints. Extremities without clubbing, cyanosis or edema. NEUROLOGIC EXAM: Alert and oriented x 3. No focal sensory or strength deficits. Speech normal. Follows commands. PSYCHIATRIC: Mood normal. SKIN: Male pattern facial hair. - Constitutional Vitals: Temp Pulse Resp BP Pulse Ox 98.3 F 60 18 103/64 100 08/25/17 08:51 08/25/17 08:48 08/25/17 08:48 08/25/17 08:48 08/25/17 08:48 Plan Activity: advance as tolerated, fall precautions Diet: low cholesterol (full liquids x 3 days and gradually advance as tolerated) Special Instructions: record daily BP diary Follow up with: PRIMARY CARE,MD [Primary Care Provider] - 3-5 Days BHARAT MONTELONGO HEAD SETTER [Advanced Practice Nurse] - 7 Days Prescriptions: Ciprofloxacin HCl [Ciprofloxacin TAB] 500 mg PO Q12H #6 tab Ondansetron [Zofran TAB] 4 mg PO Q8HR PRN #20 tablet PRN Reason: Nausea oxyCODONE /ACETAMINOPHEN [Percocet 5/325] 1 tab PO Q6HR PRN #14 tablet PRN Reason: Pain
[2017-08-25] MEDS: ZOFRAN IV PRN (14:04)
[2017-08-25 15:30] VITALS: BP 126/69
== END 2017-08-25 15:45 | disposition home or self-care (01) | DRG 439 ==
LOC: ED 17:29 → 3A 08-23 02:26
PROVIDERS: ADMIT Internal Medicine; ATTEND Internal Medicine
DX: K85.90 Acute pancreatitis without necrosis or infection, unspecified (principal); N39.0 Urinary tract infection, site not specified; Z68.42 Body mass index [BMI] 45.0-49.9, adult; R65.10 Systemic inflammatory response syndrome (SIRS) of non-infectious origin without acute organ dysfunction; E11.9 Type 2 diabetes mellitus without complications; Z82.49 Family history of ischemic heart disease and other diseases of the circulatory system; E66.01 Morbid (severe) obesity due to excess calories; E88.81 Metabolic syndrome and other insulin resistance; K80.80 Other cholelithiasis without obstruction
CPT/HCPCS: 36415; 74177; 76705; 80053; 80061; 80307; 80320; 81001; 81025; 82140; 82962; 83036; 83690; 85025; 85027; 86850; 86900; 86901; 87040; 96361; 96374; 96375; 99285; G0480; J1170; J2270; J2405; J2543; J7030; J7120; Q9967

== ENCOUNTER 2018-03-08 18:11 | Emergency (ER) | payer OTHER ==
[2018-03-08 19:03] LABS: Bilirubin,Urine SM (Negative); Blood,Urine NEG (Negative); Color,Urine Amber (Yellow); Mucus,Urine 3+ /HPF; Sperm,Urine FEW /HPF (NP)
[2018-03-08 19:09] LABS: Amphetamine Screen,Urine PRESUMPTIVE NEGATIVE; Benzodiazepines Screen,Urine PRESUMPTIVE NEGATIVE; Cocaine Screen,Urine PRESUMPTIVE NEGATIVE; Methadone Screen,Urine PRESUMPTIVE NEGATIVE; Opiate Screen,Urine PRESUMPTIVE NEGATIVE
[2018-03-08 19:23] LABS: Bacteria,Urine 1+ /HPF (Negative)
--- NOTE | 2018-03-08 19:28 | Emergency Department Report ---
ED Psych HPI - General Chief Complaint: Psych Stated Complaint: MH EVAL Time Seen by Provider: 03/08/18 19:17 Source: patient, family Mode of arrival: Wheelchair - History of Present Illness Initial Comments: 27-year-old female presents the emergency room with acute aggression towards her family. Patient brought in by police. Father and police state that the patient became very verbally aggressive and physically aggressive towards the father and had to be brought to the hospital for until evaluation. Patient denies all this. Patient denies suicidal and homicidal ideations. -: Sudden Associated Psychiatric Symptoms: other (acute aggression and hostility.) Quality: resolved prior to arrival Associated Symptoms: denies other symptoms. denies: confusion, headache, shortness of breath, nausea, vomiting, syncope, insomnia Treatments Prior to Arrival: placed on mental he - Related Data Previous Rx's Medication Instructions Recorded Last Taken Type Ciprofloxacin HCl [Ciprofloxacin 500 mg PO Q12H #6 tab 08/25/17 Unknown Rx TAB] Ondansetron [Zofran TAB] 4 mg PO Q8HR PRN #20 tablet 08/25/17 Unknown Rx oxyCODONE /ACETAMINOPHEN [Percocet 1 tab PO Q6HR PRN #14 tablet 08/25/17 Unknown Rx 5/325] Allergies Allergy/AdvReac Type Severity Reaction Status Date / Time No Known Allergies Allergy Verified 08/23/17 01:22 ED Review of Systems ROS: Stated complaint: MH EVAL Other details as noted in HPI Constitutional: denies: chills, fever Eyes: denies: eye pain, eye discharge, vision change ENT: denies: ear pain, throat pain Respiratory: denies: cough, shortness of breath, wheezing Cardiovascular: denies: chest pain, palpitations Endocrine: no symptoms reported Gastrointestinal: denies: abdominal pain, nausea, diarrhea Genitourinary: denies: urgency, dysuria, discharge Musculoskeletal: denies: back pain, joint swelling, arthralgia Skin: denies: rash, lesions Neurological: denies: headache, weakness, paresthesias Psychiatric: denies: anxiety, depression Hematological/Lymphatic: denies: easy bleeding, easy bruising ED Past Medical Hx - Past Medical History Previous Medical History?: Yes Hx Diabetes: Yes - Surgical History Past Surgical History?: No - Family History Family history: hypertension - Social History Smoking Status: Never Smoker Substance Use Type: None - Medications Home Medications: Home Medications Medication Instructions Recorded Confirmed Last Taken Type Ciprofloxacin HCl [Ciprofloxacin 500 mg PO Q12H #6 tab 08/25/17 Unknown Rx TAB] Ondansetron [Zofran TAB] 4 mg PO Q8HR PRN #20 tablet 08/25/17 Unknown Rx oxyCODONE /ACETAMINOPHEN [Percocet 1 tab PO Q6HR PRN #14 tablet 08/25/17 Unknown Rx 5/325] ED Physical Exam - General Limitations: No Limitations General appearance: alert, in no apparent distress - Head Head exam: Present: atraumatic, normocephalic - Eye Eye exam: Present: normal appearance - ENT ENT exam: Present: mucous membranes moist - Neck Neck exam: Present: normal inspection - Respiratory Respiratory exam: Present: normal lung sounds bilaterally. Absent: respiratory distress - Cardiovascular Cardiovascular Exam: Present: regular rate, normal rhythm. Absent: systolic murmur, diastolic murmur, rubs, gallop - GI/Abdominal GI/Abdominal exam: Present: soft, normal bowel sounds - Extremities Exam Extremities exam: Present: normal inspection - Back Exam Back exam: Present: normal inspection - Neurological Exam Neurological exam: Present: alert, oriented X3 - Psychiatric Psychiatric exam: Present: depressed, flat affect - Skin Skin exam: Present: warm, dry, intact, normal color. Absent: rash ED Course Vital Signs 03/08/18 18:25 Temperature 99.4 F Pulse Rate 117 H Respiratory 18 Rate Blood Pressure 137/83 O2 Sat by Pulse 100 Oximetry - Reevaluation(s) Reevaluation #1: Based on the information provided by the police and the family member, I will 1013 this patient and have mental health evaluate the patient 03/08/18 19:28 Reevaluation #2: Patient medically cleared and awaiting acceptance to appropriate psych facility. 03/08/18 20:01 ED Medical Decision Making - Lab Data Result diagrams: 03/08/18 19:15 03/08/18 19:15 - Medical Decision Making She has 27-year-old female that presents emergency room with acute psychosis and aggressive behavior. Patient placed on 1013 awaiting acceptance at an appropriate psych facility. - Differential Diagnosis psychosis. Schizophrenia. Acute aggression. Agitation. Critical care attestation.: If time is entered above; I have spent that time in minutes in the direct care of this critically ill patient, excluding procedure time. ED Disposition Clinical Impression: Acute psychosis, Aggressive behavior, Marijuana use Disposition: DC/TX-65 PSY HOSP/PSY UNIT Is pt being admited?: No Does the pt Need Aspirin: No Condition: Stable Time of Disposition: 20:00
[2018-03-08 19:31] LABS: Cannabinoid Screen,Urine PRESUMPTIVE POSITIVE
[2018-03-08 19:35] LABS: Basophils % (Auto) 0.4 % (0.0-1.8); Eosinophils % (Auto) 0.4 % (0.0-4.3); Hematocrit 37.7 % (30.3-42.9); Hemoglobin 12.2 gm/dl (10.1-14.3); Lymphocytes # (Auto) 1.7 K/mm3 (1.2-5.4); Lymphocytes % (Auto) 17.4 % (13.4-35.0); Mean Corpuscular HGB Conc 32 % (30-34); Mean Corpuscular Hemoglobin 26 pg (28-32); Mean Corpuscular Volume 81 fl (79-97); Monocytes # (Auto) 1.1 K/mm3 (0.0-0.8); Monocytes % (Auto) 11.6 % (0.0-7.3); Platelet Count 288 K/mm3 (140-440); Red Blood Count 4.67 M/mm3 (3.65-5.03); Red Cell Distribution Width 14.4 % (13.2-15.2)
[2018-03-08 19:45] LABS: BUN/Creatinine Ratio 18; Blood Urea Nitrogen 14 mg/dL (7-17); Calcium 9.2 mg/dL (8.4-10.2); Hemolysis Index 7
[2018-03-08 23:16] LABS: HCG Qualitative,Urine Negative (Negative)
[2018-03-09 07:56] VITALS: BP 135/91
[2018-03-09] MEDS ORDERED: K-DUR PO ONE (08:11)
[2018-03-09] MEDS ORDERED: ATIVAN IM PRN (08:11)
[2018-03-09] MEDS ORDERED: HALDOL IM PRN (08:11)
== END 2018-03-09 10:30 ==
LOC: EEVIPCON 18:11 → ED 18:11
DX: F23 Brief psychotic disorder (principal); E11.9 Type 2 diabetes mellitus without complications; Z79.899 Other long term (current) drug therapy
CPT/HCPCS: 36415; 80048; 80307; 81001; 81025; 83735; 85025; 96372; 99285; G0480; J1630; J2060; 80320

== ENCOUNTER 2018-03-31 10:17 | Emergency (ER) | payer OTHER ==
[2018-03-31 12:48] LABS: Bacteria,Urine 1+ /HPF (Negative); Bilirubin,Urine NEG (Negative); Blood,Urine NEG (Negative); Color,Urine Yellow (Yellow); Mucus,Urine 2+ /HPF; Protein,Urine <15 mg/dL mg/dL (Negative); Urobilinogen,Urine < 2.0 mg/dL (<2.0)
[2018-03-31 12:52] LABS: Amphetamine Screen,Urine PRESUMPTIVE NEGATIVE; Benzodiazepines Screen,Urine PRESUMPTIVE NEGATIVE; Cocaine Screen,Urine PRESUMPTIVE NEGATIVE; Methadone Screen,Urine PRESUMPTIVE NEGATIVE; Opiate Screen,Urine PRESUMPTIVE NEGATIVE
[2018-03-31 13:21] LABS: Cannabinoid Screen,Urine PRESUMPTIVE POSITIVE
--- NOTE | 2018-03-31 13:23 | Emergency Department Report ---
ED Psych HPI - General Chief Complaint: Psych Stated Complaint: MH (A/H /VH) Time Seen by Provider: 03/31/18 12:20 Source: patient, family, police, RN notes reviewed Mode of arrival: Ambulatory - History of Present Illness Initial Comments: Ms House is a 27 year-old woman with hx of schizophrenia who presents in police custody. patient unwilling to provide history, and when she does it is often contradictory. per father, she became violent with him yesterday and he called the police. Patient endorses pushing him. Police took her to residential, then brought her here for psychiatric eval today. per father she has been violent with him, breaking things around the house, responding to internal stimuli. Has been diagnosed with schizophrenia and is not taking meds. Admitted for 3 days last month to psychiatric hospital, is no better than previously. denies SI/HI/ Hallucinations. is spitting on furniture, intermittently threatening to staff, uncooperative. - Related Data Previous Rx's Medication Instructions Recorded Last Taken Type Ciprofloxacin HCl [Ciprofloxacin 500 mg PO Q12H #6 tab 08/25/17 Unknown Rx TAB] Ondansetron [Zofran TAB] 4 mg PO Q8HR PRN #20 tablet 08/25/17 Unknown Rx oxyCODONE /ACETAMINOPHEN [Percocet 1 tab PO Q6HR PRN #14 tablet 08/25/17 Unknown Rx 5/325] Allergies Allergy/AdvReac Type Severity Reaction Status Date / Time No Known Allergies Allergy Verified 03/31/18 12:13 ED Review of Systems ROS: Stated complaint: MH (A/H /VH) Other details as noted in HPI Comment: Unobtainable due to pts medical conditions (psych) ED Past Medical Hx - Past Medical History Previous Medical History?: Yes Hx Diabetes: Yes Hx Psychiatric Treatment: Yes (Schizophrenia) - Surgical History Past Surgical History?: No - Social History Smoking Status: Never Smoker Substance Use Type: Marijuana - Medications Home Medications: Home Medications Medication Instructions Recorded Confirmed Last Taken Type Ciprofloxacin HCl [Ciprofloxacin 500 mg PO Q12H #6 tab 08/25/17 Unknown Rx TAB] Ondansetron [Zofran TAB] 4 mg PO Q8HR PRN #20 tablet 08/25/17 Unknown Rx oxyCODONE /ACETAMINOPHEN [Percocet 1 tab PO Q6HR PRN #14 tablet 08/25/17 Unknown Rx 5/325] ED Physical Exam - General Limitations: No Limitations General appearance: alert, in no apparent distress - Head Head exam: Present: atraumatic, normocephalic - Eye Eye exam: Present: normal appearance, EOMI - ENT ENT exam: Present: normal exam, mucous membranes moist - Neck Neck exam: Present: normal inspection. Absent: tenderness, meningismus - Respiratory Respiratory exam: Present: normal lung sounds bilaterally. Absent: respiratory distress - Cardiovascular Cardiovascular Exam: Present: regular rate, normal rhythm - GI/Abdominal GI/Abdominal exam: Present: soft. Absent: distended, tenderness - Extremities Exam Extremities exam: Present: normal inspection, full ROM. Absent: tenderness - Back Exam Back exam: Present: normal inspection. Absent: tenderness - Neurological Exam Neurological exam: Present: alert, oriented X3 - Psychiatric Psychiatric exam: Present: agitated, other (aggressive) - Skin Skin exam: Present: warm, dry, intact ED Course Vital Signs 03/31/18 12:05 Temperature 97.9 F Pulse Rate 110 H Respiratory 16 Rate Blood Pressure 117/84 O2 Sat by Pulse 100 Oximetry ED Medical Decision Making - Lab Data Result diagrams: 03/31/18 15:14 03/31/18 15:14 Lab Results 03/31/18 03/31/18 03/31/18 Range/Units 12:23 12:23 12:25 WBC (4.5-11.0) K/mm3 RBC (3.65-5.03) M/mm3 Hgb (10.1-14.3) gm/dl Hct (30.3-42.9) % MCV (79-97) fl MCH (28-32) pg MCHC (30-34) % RDW (13.2-15.2) % Plt Count (140-440) K/mm3 Lymph % (Auto) (13.4-35.0) % Stanley % (Auto) (0.0-7.3) % Eos % (Auto) (0.0-4.3) % Baso % (Auto) (0.0-1.8) % Lymph # (1.2-5.4) K/mm3 Stanley # (0.0-0.8) K/mm3 Eos # (0.0-0.4) K/mm3 Baso # (0.0-0.1) K/mm3 Seg Neutrophils % (40.0-70.0) % Seg Neutrophils # (1.8-7.7) K/mm3 Sodium (137-145) mmol/L Potassium (3.6-5.0) mmol/L Chloride (98-107) mmol/L Carbon Dioxide (22-30) mmol/L Anion Gap mmol/L BUN (7-17) mg/dL Creatinine (0.7-1.2) mg/dL Estimated GFR ml/min BUN/Creatinine Ratio % Glucose (65-100) mg/dL Calcium (8.4-10.2) mg/dL Urine Color Yellow (Yellow) Urine Turbidity Clear (Clear) Urine pH 6.0 (5.0-7.0) Ur Specific [place] 1.013 (1.003-1.030) Urine Protein <15 mg/dl (Negative) mg/dL Urine Glucose (UA) Neg (Negative) mg/dL Urine Ketones 80 (Negative) mg/dL Urine Blood Neg (Negative) Urine Nitrite Neg (Negative) Urine Bilirubin Neg (Negative) Urine Urobilinogen < 2.0 (<2.0) mg/dL Ur Leukocyte Esterase Mod (Negative) Urine WBC (Auto) 5.0 (0.0-6.0) /HPF Urine RBC (Auto) 5.0 (0.0-6.0) /HPF U Epithel Cells (Auto) 6.0 (0-13.0) /HPF Urine Bacteria (Auto) 1+ (Negative) /HPF Urine Mucus 2+ /HPF Urine Yeast (Budding) 1+ /HPF Urine HCG, Qual Negative (Negative) Salicylates (2.8-20.0) mg/dL Urine Opiates Screen Presumptive negative Urine Methadone Screen Presumptive negative Acetaminophen (10.0-30.0) ug/mL Ur Barbiturates Screen Presumptive negative Ur Phencyclidine Scrn Presumptive negative Ur Amphetamines Screen Presumptive negative U Benzodiazepines Scrn Presumptive negative Urine Cocaine Screen Presumptive negative U Marijuana (THC) Screen Presumptive positive Drugs of Abuse Note Disclamer Plasma/Serum Alcohol (0-0.07) % 03/31/18 03/31/18 03/31/18 Range/Units 15:14 15:14 15:14 WBC (4.5-11.0) K/mm3 RBC (3.65-5.03) M/mm3 Hgb (10.1-14.3) gm/dl Hct (30.3-42.9) % MCV (79-97) fl MCH (28-32) pg MCHC (30-34) % RDW (13.2-15.2) % Plt Count (140-440) K/mm3 Lymph % (Auto) (13.4-35.0) % Stanley % (Auto) (0.0-7.3) % Eos % (Auto) (0.0-4.3) % Baso % (Auto) (0.0-1.8) % Lymph # (1.2-5.4) K/mm3 Stanley # (0.0-0.8) K/mm3 Eos # (0.0-0.4) K/mm3 Baso # (0.0-0.1) K/mm3 Seg Neutrophils % (40.0-70.0) % Seg Neutrophils # (1.8-7.7) K/mm3 Sodium 141 (137-145) mmol/L Potassium 3.8 (3.6-5.0) mmol/L Chloride 99.9 (98-107) mmol/L Carbon Dioxide 23 (22-30) mmol/L Anion Gap 22 mmol/L BUN 16 (7-17) mg/dL Creatinine 0.6 L (0.7-1.2) mg/dL Estimated GFR > 60 ml/min BUN/Creatinine Ratio 27 % Glucose 89 (65-100) mg/dL Calcium 9.1 (8.4-10.2) mg/dL Urine Color (Yellow) Urine Turbidity (Clear) Urine pH (5.0-7.0) Ur Specific [place] (1.003-1.030) Urine Protein (Negative) mg/dL Urine Glucose (UA) (Negative) mg/dL Urine Ketones (Negative) mg/dL Urine Blood (Negative) Urine Nitrite (Negative) Urine Bilirubin (Negative) Urine Urobilinogen (<2.0) mg/dL Ur Leukocyte Esterase (Negative) Urine WBC (Auto) (0.0-6.0) /HPF Urine RBC (Auto) (0.0-6.0) /HPF U Epithel Cells (Auto) (0-13.0) /HPF Urine Bacteria (Auto) (Negative) /HPF Urine Mucus /HPF Urine Yeast (Budding) /HPF Urine HCG, Qual (Negative) Salicylates < 0.3 L (2.8-20.0) mg/dL Urine Opiates Screen Urine Methadone Screen Acetaminophen < 5.0 L (10.0-30.0) ug/mL Ur Barbiturates Screen Ur Phencyclidine Scrn Ur Amphetamines Screen U Benzodiazepines Scrn Urine Cocaine Screen U Marijuana (THC) Screen Drugs of Abuse Note Plasma/Serum Alcohol (0-0.07) % 03/31/18 03/31/18 Range/Units 15:14 15:14 WBC 10.2 (4.5-11.0) K/mm3 RBC 4.73 (3.65-5.03) M/mm3 Hgb 12.5 (10.1-14.3) gm/dl Hct 38.6 (30.3-42.9) % MCV 82 (79-97) fl MCH 27 L (28-32) pg MCHC 33 (30-34) % RDW 14.6 (13.2-15.2) % Plt Count 281 (140-440) K/mm3 Lymph % (Auto) 20.9 (13.4-35.0) % Stanley % (Auto) 9.3 H (0.0-7.3) % Eos % (Auto) 1.4 (0.0-4.3) % Baso % (Auto) 0.4 (0.0-1.8) % Lymph # 2.1 (1.2-5.4) K/mm3 Stanley # 0.9 H (0.0-0.8) K/mm3 Eos # 0.1 (0.0-0.4) K/mm3 Baso # 0.0 (0.0-0.1) K/mm3 Seg Neutrophils % 68.0 (40.0-70.0) % Seg Neutrophils # 7.0 (1.8-7.7) K/mm3 Sodium (137-145) mmol/L Potassium (3.6-5.0) mmol/L Chloride (98-107) mmol/L Carbon Dioxide (22-30) mmol/L Anion Gap mmol/L BUN (7-17) mg/dL Creatinine (0.7-1.2) mg/dL Estimated GFR ml/min BUN/Creatinine Ratio % Glucose (65-100) mg/dL Calcium (8.4-10.2) mg/dL Urine Color (Yellow) Urine Turbidity (Clear) Urine pH (5.0-7.0) Ur Specific [place] (1.003-1.030) Urine Protein (Negative) mg/dL Urine Glucose (UA) (Negative) mg/dL Urine Ketones (Negative) mg/dL Urine Blood (Negative) Urine Nitrite (Negative) Urine Bilirubin (Negative) Urine Urobilinogen (<2.0) mg/dL Ur Leukocyte Esterase (Negative) Urine WBC (Auto) (0.0-6.0) /HPF Urine RBC (Auto) (0.0-6.0) /HPF U Epithel Cells (Auto) (0-13.0) /HPF Urine Bacteria (Auto) (Negative) /HPF Urine Mucus /HPF Urine Yeast (Budding) /HPF Urine HCG, Qual (Negative) Salicylates (2.8-20.0) mg/dL Urine Opiates Screen Urine Methadone Screen Acetaminophen (10.0-30.0) ug/mL Ur Barbiturates Screen Ur Phencyclidine Scrn Ur Amphetamines Screen U Benzodiazepines Scrn Urine Cocaine Screen U Marijuana (THC) Screen Drugs of Abuse Note Plasma/Serum Alcohol < 0.01 (0-0.07) % - Medical Decision Making Ms House is a 27 year-old woman who presents in police custody for psychiatric evaluation. Per father, has been hallucinating, assaulting him, breaking things in the house. Pt uncooperative here. hx of schizophrenia, not on meds. Medically cleared. normal exam and laboratory evaluation. 1013 placed as I believe she is a risk to others and unable to care for self. Pending psychiatric placement. Critical care attestation.: If time is entered above; I have spent that time in minutes in the direct care of this critically ill patient, excluding procedure time. ED Disposition Clinical Impression: Psychosis Qualifiers: Psychosis type: schizophrenia Schizophrenia type: unspecified Qualified Code(s) : F20.9 - Schizophrenia, unspecified Disposition: DC/TX-65 PSY HOSP/PSY UNIT Is pt being admited?: No Condition: Stable Instructions: Schizophrenia (ED), Suicide Prevention for Adults (ED) Referrals: PRIMARY CARE, [Primary Care Provider] - 3-5 Days
[2018-03-31 15:38] LABS: Basophils % (Auto) 0.4 % (0.0-1.8); Eosinophils # (Auto) 0.1 K/mm3 (0.0-0.4); Eosinophils % (Auto) 1.4 % (0.0-4.3); Hematocrit 38.6 % (30.3-42.9); Hemoglobin 12.5 gm/dl (10.1-14.3); Lymphocytes # (Auto) 2.1 K/mm3 (1.2-5.4); Lymphocytes % (Auto) 20.9 % (13.4-35.0); Mean Corpuscular HGB Conc 33 % (30-34); Mean Corpuscular Hemoglobin 27 pg (28-32); Mean Corpuscular Volume 82 fl (79-97); Monocytes # (Auto) 0.9 K/mm3 (0.0-0.8); Monocytes % (Auto) 9.3 % (0.0-7.3); Platelet Count 281 K/mm3 (140-440); Red Blood Count 4.73 M/mm3 (3.65-5.03); Red Cell Distribution Width 14.6 % (13.2-15.2)
[2018-03-31 16:06] LABS: BUN/Creatinine Ratio 27; Blood Urea Nitrogen 16 mg/dL (7-17); Calcium 9.1 mg/dL (8.4-10.2); Hemolysis Index 1
[2018-03-31 16:32] LABS: HCG Qualitative,Urine Negative (Negative)
[2018-04-01] MEDS ORDERED: GEODON IM ONE (01:34)
[2018-04-01 06:00] VITALS: BP 132/84
== END 2018-04-01 07:37 ==
LOC: ED 10:17
DX: F20.9 Schizophrenia, unspecified (principal); F12.10 Cannabis abuse, uncomplicated; E11.9 Type 2 diabetes mellitus without complications; Z79.899 Other long term (current) drug therapy
CPT/HCPCS: 36415; 80048; 80307; 81001; 81025; 85025; 96372; 99285; G0480; J3486; 80320

== ENCOUNTER 2019-11-05 10:46 | Emergency (ER) | payer SELFPAY ==
[2019-11-05] MEDS ORDERED: LORazepam 2 MG/ML VIAL IM PRN (10:57)
[2019-11-05] MEDS ORDERED: HALOPERIDOL LACTATE 5 MG/1 ML INJ IM PRN (10:57)
--- NOTE | 2019-11-05 11:17 | Emergency Department Report ---
HPI - General Time Seen by Provider: 11/05/19 10:52 - HPI HPI: Room 14 The patient is a 29-year-old female presenting with a chief complaint of combative behavior. Patient was brought in by EMS after being combative and disruptive at home. Patient was allegedly destroying property at the home. Patient currently lies on a mat on the floor and mumbles incoherently ED Past Medical Hx - Past Medical History Previous Medical History?: Yes Hx Diabetes: Yes Hx Psychiatric Treatment: Yes (Schizophrenia, Depression) - Surgical History Additional Surgical History: cholecystectomy Sep 2019 - Family History Family history: no significant - Social History Smoking Status: Current Every Day Smoker Substance Use Type: None - Medications Home Medications: Home Medications Medication Instructions Recorded Confirmed Last Taken Type Ciprofloxacin HCl [Ciprofloxacin 500 mg PO Q12H #6 tab 08/25/17 04/01/18 Unknown Rx TAB] Ondansetron [Zofran TAB] 4 mg PO Q8HR PRN #20 tablet 08/25/17 04/01/18 Unknown Rx oxyCODONE /ACETAMINOPHEN [Percocet 1 tab PO Q6HR PRN #14 tablet 08/25/17 04/01/18 Unknown Rx 5/325] ED Review of Systems ROS: Stated complaint: MENTAL HEALTH Other details as noted in HPI Comment: Unobtainable due to pts medical conditions Physical Exam - Physical Exam Physical Exam: GEN: WD WN female lying on mat on the floor in NAD HEENT: NCAT, EOMI NECK: trachea midline PULM: CTA bilat. No resp distress noted CV: rrr no m/r/g ABD: s/nt/nd SKIN: no diaphoresis NEURO: Moves all extremities well. Mumbles incoherently at times MUSCULOSKELETAL: No evidence of acute injury ED Medical Decision Making - Differential Diagnosis Schizophrenia Critical care attestation.: If time is entered above; I have spent that time in minutes in the direct care of this critically ill patient, excluding procedure time. ED Disposition Clinical Impression: Schizophrenia Disposition: DC/TX-65 PSY HOSP/PSY UNIT Is pt being admited?: No Does the pt Need Aspirin: No Condition: Stable
[2019-11-05] MEDS: diphenhydrAMINE 50 MG/ML VIAL IM PRN (11:49)
[2019-11-05 13:56] LABS: Basophils # (Auto) 0.1 K/mm3 (0.0-0.1); Basophils % (Auto) 0.5 % (0.0-1.8); Eosinophils % (Auto) 0.3 % (0.0-4.3); Hematocrit 35.8 % (30.3-42.9); Hemoglobin 11.7 gm/dl (10.1-14.3); Lymphocytes # (Auto) 2.7 K/mm3 (1.2-5.4); Lymphocytes % (Auto) 23.2 % (13.4-35.0); Mean Corpuscular HGB Conc 33 % (30-34); Mean Corpuscular Volume 81 fl (79-97); Monocytes # (Auto) 1.6 K/mm3 (0.0-0.8); Monocytes % (Auto) 14.2 % (0.0-7.3); Platelet Count 266 K/mm3 (140-440); Red Blood Count 4.45 M/mm3 (3.65-5.03)
[2019-11-05 14:15] LABS: BUN/Creatinine Ratio 21; Blood Urea Nitrogen 19 mg/dL (7-17); Calcium 9.6 mg/dL (8.4-10.2); Hemolysis Index 7
[2019-11-05 14:21] LABS: Free T4 (Free Thyroxine) 1.13 ng/dL (0.76-1.46)
[2019-11-05 16:59] LABS: Bilirubin,Urine NEG (Negative); Blood,Urine NEG (Negative); Color,Urine Amber (Yellow); Mucus,Urine 2+ /HPF; Urobilinogen,Urine < 2.0 mg/dL (<2.0)
[2019-11-05 17:00] LABS: Amphetamine Screen,Urine PRESUMPTIVE NEGATIVE; Benzodiazepines Screen,Urine PRESUMPTIVE NEGATIVE; Cocaine Screen,Urine PRESUMPTIVE NEGATIVE; Methadone Screen,Urine PRESUMPTIVE NEGATIVE; Opiate Screen,Urine PRESUMPTIVE NEGATIVE
[2019-11-05 17:14] LABS: Cannabinoid Screen,Urine PRESUMPTIVE POSITIVE
[2019-11-06] MEDS: diphenhydrAMINE 50 MG/ML VIAL IM PRN (09:03)
--- NOTE | 2019-11-06 13:40 | Consultation ---
History of Present Illness - Reason for Consult Consult date: 11/06/19 Reason for consult: psychiatric assessment - History of Present Psychiatric Illness ms bella is a 29 year old -[place] female, the patient was standing at the doorway, she is alert oriented x3, she maintains intermittent eye contact. She appeared sad looking and unhappy when asked why she is here the patient stated, "EMT came to my house and told me I have to go I am not sure why". The patient reports that she has a history of schizophrenia, and that she has been off of her meds probably up to 1 year. She states that because she was working she did not have the time to get her medication filled but now she has lost her insurance. The patient denies suicidal or homicidal ideations, she denies visual or auditory hallucinations the patient denies being depressed, refused to say how. The patient reports that she is eating and sleeping well. Patient is very hesitant when answering questions, she appears apprehensive not forthcoming with information. She reports her mood as okay. per chart,patient has been responding to internal stimuli. is spitting on furniture, intermittently threatening to staff, uncooperative. PAST PSYCHIATRIC HISTORY: Diagnoses: Schizophrenia Suicide attempts or Self-harm behavior: Denies Prior psychiatric hospitalizations: Yes Substance Abuse history: No Previous psychiatric medications tried: Risperdal Outpatient treatment: No PAST MEDICAL HISTORY: pcos Family Psychiatric History None reported or documented SOCIAL HISTORY Marital Status: Single Living Arrangements: dad Employment Status: Unemployed Access to guns/weapons: Denies Education: 12th grade History of Abuse: Denies Legal History: Yes ROS: Constitutional: Negative for weight loss ENT: Negative for stridor Respiratory: Negative for cough or hemoptysis All other systems reviewed and are negative MENTAL STATUS General Appearance and Behavior: age appropriate, good eye contact, cooperative with questioning and polite Cooperation: Cooperative Psychomotor Behavior: within normal limits Mood: OK Affect and affective range: flat Thought Process: Fluent/Logical and Goal-directed Thought Content: Within reality Speech: low volume and Regular rate and rhythm Intellectual Functioning Average Suicidal Ideation: Denies SI Homicidal Ideation: Denies HI Impulse Control: intact Insight and Judgment: fair Memory: Normal Attention: Normal Orientation: alert and oriented RECOMMENDATIONS MEDICATIONS: start risperdal 0.25mg bid Risks, benefits and alternatives of medications discussed with the patient, questions answered and consent obtained from patient. PSYCHOTHERAPY: Supportive psychotherapy provided MEDICAL: Per primary team DELIRIUM PRECAUTIONS: Please re-orient patient frequently, keep lights on during the day, and minimize benzodiazepines and opiates as these medications could worsen patient's confusion. PATCH SETTER: DISPOSITION: : The patient meets the requirement for acute inpatient psychiatric treatment at this time. LEGAL STATUS: 1013 FOLLOW-UP: Will follow Medications and Allergies Allergies Allergy/AdvReac Type Severity Reaction Status Date / Time No Known Allergies Allergy Verified 03/31/18 12:13 Home Medications Medication Instructions Recorded Confirmed Last Taken Type metFORMIN [Glucophage] 500 mg PO QDAY 11/06/19 11/06/19 Unknown History Active Meds: Active Medications Diphenhydramine HCl (Benadryl) 50 mg IM Q6H PRN PRN Reason: Agitation Last Admin: 11/06/19 09:03 Dose: 50 mg Documented by: Haloperidol Lactate (Haldol) 10 mg IM Q8H PRN PRN Reason: Agitation Last Admin: 11/05/19 11:49 Dose: 10 mg Documented by: Lorazepam (Ativan) 2 mg IM Q8H PRN PRN Reason: Agitation Mental Status Exam - Vital signs Last Vital Signs Temp 98.3 F 11/06/19 07:40 Pulse 91 H 11/06/19 07:40 Resp 20 11/06/19 07:40 BP 133/69 11/06/19 07:40 Pulse Ox 97 11/06/19 07:40 Results Result Diagrams: 11/05/19 13:04 11/05/19 13:04 Abnormal lab results 11/05/19 11/05/19 11/05/19 Range/Units 13:04 13:04 13:04 WBC 11.5 H (4.5-11.0) K/mm3 MCH 26 L (28-32) pg Todd % (Auto) 14.2 H (0.0-7.3) % Todd # 1.6 H (0.0-0.8) K/mm3 BUN 19 H (7-17) mg/dL Glucose 109 H (65-100) mg/dL Salicylates < 0.3 L (2.8-20.0) mg/dL Acetaminophen (10.0-30.0) ug/mL 11/05/19 Range/Units 13:04 WBC (4.5-11.0) K/mm3 MCH (28-32) pg Todd % (Auto) (0.0-7.3) % Todd # (0.0-0.8) K/mm3 BUN (7-17) mg/dL Glucose (65-100) mg/dL Salicylates (2.8-20.0) mg/dL Acetaminophen < 5.0 L (10.0-30.0) ug/mL All other labs normal.
[2019-11-06] MEDS ORDERED: risperiDONE 0.25 MG TAB PO SCH (22:00)
[2019-11-06] MEDS ORDERED: traZODone 50 MG TAB PO SCH (22:00)
[2019-11-07] MEDS: risperiDONE 0.25 MG TAB PO SCH ×2 (01:49→10:23)
--- NOTE | 2019-11-07 13:31 | Progress Note ---
Subjective - Reason for Consult Consult date: 11/07/19 Reason for consult: psychiatric assessment - Chief Complaint Chief complaint: Medical records reviewed and patient's progress was discussed with unit staff. Per chart Meds administered as ordered. Pt was sitting in the room watching tv. [facility] Farm Or Ranch Animal Caretaker, Lori, is present at the bedside During my interview with the patient this morning, the patient was in her room [id number], the patient is dressed appropriate for the occasion, she maintains eye contact, able to make needs known. Patient denies suicidal or homicidal ideations, she states "I would never hurt myself, why should I". The patient denies visual or auditory hallucinations. The patient report eating and sleeping well. The patient denies any form of depressive symptoms. The patient report feeling safe going home. The patient stated, "I know because I was out of my medication these symptoms came". The patient agreed to outpatient mental health treatment and to start being compliant with medications. Patient has the ability and appear to understand needs for medication and is willing to maintain adherence. REVIEW OF SYSTEMS Constitutional: Negative for weight loss ENT: Negative for stridor Respiratory: Negative for cough or hemoptysis All other systems reviewed and are negative MENTAL STATUS General Appearance and Behavior: age appropriate, good eye contact, cooperative with questioning and polite Cooperation: Cooperative Psychomotor Behavior: within normal limits Mood: OK Affect and affective range: Congruent with stated mood Thought Process: Fluent/Logical and Goal-directed Thought Content: Within reality Speech: Normal volume and Regular rate and rhythm Intellectual Functioning Average Suicidal Ideation: Denies SI Homicidal Ideation: Denies HI Impulse Control: intact Insight and Judgment: normal insight and judgment Memory: Normal Attention: Normal Orientation: alert and oriented RECOMMENDATIONS MEDICATIONS: continue medication on chart Risks, benefits and alternatives of medications discussed with the patient, questions answered and consent obtained from patient. PSYCHOTHERAPY: Supportive psychotherapy provided MEDICAL: Per primary team. DISPOSITION: Per primary team; no indication for acute inpatient psychiatric hospitalization at this time,The patient should be complaint with medications, not use drugs, and not drink alcohol. The patient understands that if suicidal, homicidal or endangering feelings arise he should seek assistance including but not limited to calling 911, the crisis hotline, and the emergency room. Follow up with outpatient psychiatry and primary doctor in 7 to 14 days LEGAL STATUS: d/c 1013 FOLLOW-UP: sign off Mental Status Exam - Vital signs Last Vital Signs Temp 98.3 F 11/07/19 08:13 Pulse 68 11/07/19 08:13 Resp 18 11/07/19 08:13 BP 124/78 11/07/19 08:13 Pulse Ox 100 11/07/19 08:13
[2019-11-07 14:07] VITALS: BP 132/73
== END 2019-11-07 16:30 | disposition home or self-care (01) ==
LOC: ED 10:46 → EEVIPCON 10:46 → ED 11-07 16:30
DX: F20.89 Other schizophrenia (principal); F31.9 Bipolar disorder, unspecified; F17.200 Nicotine dependence, unspecified, uncomplicated; Z79.899 Other long term (current) drug therapy; Z90.49 Acquired absence of other specified parts of digestive tract; E11.9 Type 2 diabetes mellitus without complications
CPT/HCPCS: 36415; 80048; 80307; 81001; 84439; 84443; 84703; 85025; 96372; 99284; J1200; J1630; 80320; G0480

== ENCOUNTER 2019-11-22 16:23 | Emergency (ER) | payer SELFPAY ==
[2019-11-22 17:10] LABS: Basophils # (Auto) 0.1 K/mm3 (0.0-0.1); Basophils % (Auto) 0.8 % (0.0-1.8); Eosinophils % (Auto) 0.3 % (0.0-4.3); Hemoglobin 12.5 gm/dl (10.1-14.3); Lymphocytes # (Auto) 2.5 K/mm3 (1.2-5.4); Lymphocytes % (Auto) 19.2 % (13.4-35.0); Mean Corpuscular HGB Conc 32 % (30-34); Mean Corpuscular Volume 81 fl (79-97); Monocytes # (Auto) 1.3 K/mm3 (0.0-0.8); Monocytes % (Auto) 10.5 % (0.0-7.3); Platelet Count 328 K/mm3 (140-440); Red Blood Count 4.84 M/mm3 (3.65-5.03); Red Cell Distribution Width 15.1 % (13.2-15.2)
--- NOTE | 2019-11-22 17:25 | Emergency Department Report ---
<GALA BROWN - Last Filed: 11/22/19 17:25> ED Psych HPI - General Chief Complaint: Psych Stated Complaint: MH EVAL Time Seen by Provider: 11/22/19 16:49 Source: patient, EMS Mode of arrival: Ambulatory - History of Present Illness Initial Comments: Patient is a 29-year-old F [place] female with a past medical history of schizophrenia who is presenting with suicidal ideations. Patient has a history of diabetes as well. Patient states she has no plans for how she would actually kill herself. Patient is denying any homicidal ideations at this time. Patient was seen here and evaluated several weeks ago after being brought in for aggressive behavior. Patient appears calm at this time. - Related Data Previous Rx's Medication Instructions Recorded Last Taken Type metFORMIN [Glucophage] 500 mg PO QDAY #30 11/07/19 Unknown Rx risperiDONE [RisperDAL] 0.5 mg PO BID #60 tablet 11/07/19 Unknown Rx traZODone [Desyrel] 50 mg PO QHS #30 tablet 11/07/19 Unknown Rx Allergies Allergy/AdvReac Type Severity Reaction Status Date / Time No Known Allergies Allergy Verified 03/31/18 12:13 ED Review of Systems Comment: All other systems reviewed and negative ED Past Medical Hx - Past Medical History Hx Diabetes: Yes Hx Psychiatric Treatment: Yes (Schizophrenia, Depression) - Surgical History Additional Surgical History: cholecystectomy Sep 2019 - Social History Smoking Status: Former Smoker Substance Use Type: None - Medications Home Medications: Home Medications Medication Instructions Recorded Confirmed Last Taken Type metFORMIN [Glucophage] 500 mg PO QDAY #30 11/07/19 11/23/19 Unknown Rx risperiDONE [RisperDAL] 0.5 mg PO BID #60 tablet 11/07/19 11/23/19 Unknown Rx traZODone [Desyrel] 50 mg PO QHS #30 tablet 11/07/19 11/23/19 Unknown Rx ED Physical Exam - General Limitations: No Limitations General appearance: alert, in no apparent distress - Head Head exam: Present: atraumatic, normocephalic - Eye Eye exam: Present: normal appearance - ENT ENT exam: Present: mucous membranes moist - Neck Neck exam: Present: normal inspection - Respiratory Respiratory exam: Present: normal lung sounds bilaterally. Absent: respiratory distress, wheezes, rales, rhonchi - Cardiovascular Cardiovascular Exam: Present: regular rate, normal rhythm, normal heart sounds. Absent: systolic murmur, diastolic murmur, rubs, gallop - GI/Abdominal GI/Abdominal exam: Present: soft, normal bowel sounds. Absent: distended, tenderness, guarding, rebound - Extremities Exam Extremities exam: Present: normal inspection - Back Exam Back exam: Present: normal inspection - Neurological Exam Neurological exam: Present: alert, oriented X3 - Psychiatric Psychiatric exam: Present: normal mood, flat affect - Skin Skin exam: Present: warm, dry, intact, normal color. Absent: rash ED Medical Decision Making - Lab Data Result diagrams: 11/22/19 16:53 ED Disposition Clinical Impression: Schizophrenia Disposition: DC-01 TO HOME OR SELFCARE Condition: Stable Referrals: PRIMARY CARE, [Primary Care Provider] - 3-5 Days <ALEXANDRE GIRALDO - Last Filed: 11/22/19 20:34> ED Course - Reevaluation(s) Reevaluation #1: 11/22/19 20:34 While in the emergency room, patient started yelling, screaming and cursing, and became violently threatening. She did not respond to verbal techniques, or de- escalation techniques, and she did not respond to show of force. She required medication with haloperidol and Ativan. Her laboratory studies are reviewed and unremarkable. Urinalysis is contaminated with epithelial cells, she did not endorse any irritative or obstructive urinary symptoms, this does not meet criteria for antibiotic therapy. Psychiatric consultation is pending at this time. At the moment, the patient does not appear to have an immediate medical contraindication to psychiatric admission, evaluation, consultation and placement. ED Medical Decision Making - Lab Data Result diagrams: 11/22/19 16:53 11/22/19 16:53 Lab Results 11/22/19 11/22/19 11/22/19 Range/Units 16:53 16:53 16:53 WBC (4.5-11.0) K/mm3 RBC (3.65-5.03) M/mm3 Hgb (10.1-14.3) gm/dl Hct (30.3-42.9) % MCV (79-97) fl MCH (28-32) pg MCHC (30-34) % RDW (13.2-15.2) % Plt Count (140-440) K/mm3 Lymph % (Auto) (13.4-35.0) % [place] % (Auto) (0.0-7.3) % Eos % (Auto) (0.0-4.3) % Baso % (Auto) (0.0-1.8) % Lymph # (1.2-5.4) K/mm3 [place] # (0.0-0.8) K/mm3 Eos # (0.0-0.4) K/mm3 Baso # (0.0-0.1) K/mm3 Seg Neutrophils % (40.0-70.0) % Seg Neutrophils # (1.8-7.7) K/mm3 Sodium 139 (137-145) mmol/L Potassium 4.2 (3.6-5.0) mmol/L Chloride 100.6 (98-107) mmol/L Carbon Dioxide 23 (22-30) mmol/L Anion Gap 20 mmol/L BUN 19 H (7-17) mg/dL Creatinine 0.8 (0.7-1.2) mg/dL Estimated GFR > 60 ml/min BUN/Creatinine Ratio 24 % Glucose 108 H (65-100) mg/dL Calcium 9.7 (8.4-10.2) mg/dL Magnesium (1.7-2.3) mg/dL Total Creatine Kinase (30-135) units/L Urine Color (Yellow) Urine Turbidity (Clear) Urine pH (5.0-7.0) Ur Specific [place] (1.003-1.030) Urine Protein (Negative) mg/dL Urine Glucose (UA) (Negative) mg/dL Urine Ketones (Negative) mg/dL Urine Blood (Negative) Urine Nitrite (Negative) Urine Bilirubin (Negative) Urine Urobilinogen (<2.0) mg/dL Ur Leukocyte Esterase (Negative) Urine WBC (Auto) (0.0-6.0) /HPF Urine RBC (Auto) (0.0-6.0) /HPF U Epithel Cells (Auto) (0-13.0) /HPF Urine Bacteria (Auto) (Negative) /HPF Urine Mucus /HPF Urine HCG, Qual (Negative) Salicylates < 0.3 L (2.8-20.0) mg/dL Urine Opiates Screen Urine Methadone Screen Acetaminophen < 5.0 L (10.0-30.0) ug/mL Ur Barbiturates Screen Ur Phencyclidine Scrn Ur Amphetamines Screen U Benzodiazepines Scrn Urine Cocaine Screen U Marijuana (THC) Screen Plasma/Serum Alcohol (0-0.07) % 11/22/19 11/22/19 11/22/19 Range/Units 16:53 16:53 19:28 WBC 12.9 H (4.5-11.0) K/mm3 RBC 4.84 (3.65-5.03) M/mm3 Hgb 12.5 (10.1-14.3) gm/dl Hct 39.0 (30.3-42.9) % MCV 81 (79-97) fl MCH 26 L (28-32) pg MCHC 32 (30-34) % RDW 15.1 (13.2-15.2) % Plt Count 328 (140-440) K/mm3 Lymph % (Auto) 19.2 (13.4-35.0) % [place] % (Auto) 10.5 H (0.0-7.3) % Eos % (Auto) 0.3 (0.0-4.3) % Baso % (Auto) 0.8 (0.0-1.8) % Lymph # 2.5 (1.2-5.4) K/mm3 [place] # 1.3 H (0.0-0.8) K/mm3 Eos # 0.0 (0.0-0.4) K/mm3 Baso # 0.1 (0.0-0.1) K/mm3 Seg Neutrophils % 69.2 (40.0-70.0) % Seg Neutrophils # 8.9 H (1.8-7.7) K/mm3 Sodium (137-145) mmol/L Potassium (3.6-5.0) mmol/L Chloride (98-107) mmol/L Carbon Dioxide (22-30) mmol/L Anion Gap mmol/L BUN (7-17) mg/dL Creatinine (0.7-1.2) mg/dL Estimated GFR ml/min BUN/Creatinine Ratio % Glucose (65-100) mg/dL Calcium (8.4-10.2) mg/dL Magnesium 2.50 H (1.7-2.3) mg/dL Total Creatine Kinase 71 (30-135) units/L Urine Color (Yellow) Urine Turbidity (Clear) Urine pH (5.0-7.0) Ur Specific [place] (1.003-1.030) Urine Protein (Negative) mg/dL Urine Glucose (UA) (Negative) mg/dL Urine Ketones (Negative) mg/dL Urine Blood (Negative) Urine Nitrite (Negative) Urine Bilirubin (Negative) Urine Urobilinogen (<2.0) mg/dL Ur Leukocyte Esterase (Negative) Urine WBC (Auto) (0.0-6.0) /HPF Urine RBC (Auto) (0.0-6.0) /HPF U Epithel Cells (Auto) (0-13.0) /HPF Urine Bacteria (Auto) (Negative) /HPF Urine Mucus /HPF Urine HCG, Qual (Negative) Salicylates (2.8-20.0) mg/dL Urine Opiates Screen Urine Methadone Screen Acetaminophen (10.0-30.0) ug/mL Ur Barbiturates Screen Ur Phencyclidine Scrn Ur Amphetamines Screen U Benzodiazepines Scrn Urine Cocaine Screen U Marijuana (THC) Screen Plasma/Serum Alcohol < 0.01 (0-0.07) % 11/22/19 11/22/19 11/22/19 Range/Units 19:42 19:42 19:42 WBC (4.5-11.0) K/mm3 RBC (3.65-5.03) M/mm3 Hgb (10.1-14.3) gm/dl Hct (30.3-42.9) % MCV (79-97) fl MCH (28-32) pg MCHC (30-34) % RDW (13.2-15.2) % Plt Count (140-440) K/mm3 Lymph % (Auto) (13.4-35.0) % [place] % (Auto) (0.0-7.3) % Eos % (Auto) (0.0-4.3) % Baso % (Auto) (0.0-1.8) % Lymph # (1.2-5.4) K/mm3 [place] # (0.0-0.8) K/mm3 Eos # (0.0-0.4) K/mm3 Baso # (0.0-0.1) K/mm3 Seg Neutrophils % (40.0-70.0) % Seg Neutrophils # (1.8-7.7) K/mm3 Sodium (137-145) mmol/L Potassium (3.6-5.0) mmol/L Chloride (98-107) mmol/L Carbon Dioxide (22-30) mmol/L Anion Gap mmol/L BUN (7-17) mg/dL Creatinine (0.7-1.2) mg/dL Estimated GFR ml/min BUN/Creatinine Ratio % Glucose (65-100) mg/dL Calcium (8.4-10.2) mg/dL Magnesium (1.7-2.3) mg/dL Total Creatine Kinase (30-135) units/L Urine Color [place] (Yellow) Urine Turbidity Cloudy (Clear) Urine pH 5.0 (5.0-7.0) Ur Specific [place] 1.033 H (1.003-1.030) Urine Protein 30 mg/dl (Negative) mg/dL Urine Glucose (UA) Neg (Negative) mg/dL Urine Ketones 20 (Negative) mg/dL Urine Blood Neg (Negative) Urine Nitrite Neg (Negative) Urine Bilirubin Neg (Negative) Urine Urobilinogen 2.0 (<2.0) mg/dL Ur Leukocyte Esterase Neg (Negative) Urine WBC (Auto) 3.0 (0.0-6.0) /HPF Urine RBC (Auto) 14.0 (0.0-6.0) /HPF U Epithel Cells (Auto) 36.0 H (0-13.0) /HPF Urine Bacteria (Auto) 2+ (Negative) /HPF Urine Mucus 3+ /HPF Urine HCG, Qual Negative (Negative) Salicylates (2.8-20.0) mg/dL Urine Opiates Screen Presumptive negative Urine Methadone Screen Presumptive negative Acetaminophen (10.0-30.0) ug/mL Ur Barbiturates Screen Presumptive negative Ur Phencyclidine Scrn Presumptive negative Ur Amphetamines Screen Presumptive negative U Benzodiazepines Scrn Presumptive negative Urine Cocaine Screen Presumptive negative U Marijuana (THC) Screen Presumptive positive Plasma/Serum Alcohol (0-0.07) % <GIULIANO LAZO - Last Filed: 11/23/19 15:40> ED Review of Systems ROS: Stated complaint: MH EVSB Other details as noted in HPI ED Course Vital Signs 11/22/19 11/22/19 11/23/19 20:33 21:48 01:00 Temperature 98.7 F 98.0 F Pulse Rate 90 90 Respiratory 18 18 20 Rate Blood Pressure 125/89 115/59 [Right] O2 Sat by Pulse 100 100 100 Oximetry 11/23/19 08:31 Temperature 98.6 F Pulse Rate 112 H Respiratory 20 Rate Blood Pressure 149/82 [Right] O2 Sat by Pulse 100 Oximetry ED Medical Decision Making - Lab Data Result diagrams: 11/22/19 16:53 11/22/19 16:53 Critical care attestation.: If time is entered above; I have spent that time in minutes in the direct care of this critically ill patient, excluding procedure time. ED Disposition Is pt being admited?: No
[2019-11-22 17:28] LABS: BUN/Creatinine Ratio 24; Blood Urea Nitrogen 19 mg/dL (7-17); Calcium 9.7 mg/dL (8.4-10.2); Hemolysis Index 8
[2019-11-22] MEDS ORDERED: LORazepam 2 MG/ML VIAL IM PRN (18:36)
[2019-11-22] MEDS ORDERED: HALOPERIDOL LACTATE 5 MG/1 ML INJ IM PRN (18:36)
[2019-11-22] MEDS ORDERED: HALOPERIDOL LACTATE 5 MG/1 ML INJ IM ONE (18:36)
[2019-11-22] MEDS ORDERED: LORazepam 2 MG/ML VIAL IV ONE (18:37)
[2019-11-22 20:05] LABS: Bacteria,Urine 2+ /HPF (Negative); Bilirubin,Urine NEG (Negative); Blood,Urine NEG (Negative); Color,Urine Amber (Yellow); Mucus,Urine 3+ /HPF
[2019-11-22 20:07] LABS: HCG Qualitative,Urine Negative (Negative)
[2019-11-22 20:10] LABS: Amphetamine Screen,Urine PRESUMPTIVE NEGATIVE; Benzodiazepines Screen,Urine PRESUMPTIVE NEGATIVE; Cocaine Screen,Urine PRESUMPTIVE NEGATIVE; Methadone Screen,Urine PRESUMPTIVE NEGATIVE; Opiate Screen,Urine PRESUMPTIVE NEGATIVE
[2019-11-22 20:31] LABS: Cannabinoid Screen,Urine PRESUMPTIVE POSITIVE
[2019-11-23] MEDS ORDERED: metFORMIN 500 MG TAB PO SCH (08:00)
[2019-11-23 08:33] VITALS: BP 149/82
== END 2019-11-23 10:00 | disposition home or self-care (01) ==
LOC: ED 16:23 → EEVIPCON 16:23 → ED 11-23 10:00
DX: F20.9 Schizophrenia, unspecified (principal); F32.9 Major depressive disorder, single episode, unspecified; E11.9 Type 2 diabetes mellitus without complications; Z90.49 Acquired absence of other specified parts of digestive tract; Z87.891 Personal history of nicotine dependence; Z79.84 Long term (current) use of oral hypoglycemic drugs; Z79.899 Other long term (current) drug therapy
CPT/HCPCS: 36415; 80048; 80307; 81001; 81025; 82550; 82962; 83735; 85025; 96372; 96374; 99285; J1630; J2060; 80320; G0480

== ENCOUNTER 2020-01-29 17:36 | Emergency (ER) | payer SELFPAY ==
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
[2020-01-29 18:27] LABS: Basophils # (Auto) 0.1 K/mm3 (0.0-0.1); Basophils % (Auto) 0.6 % (0.0-1.8); Eosinophils # (Auto) 0.3 K/mm3 (0.0-0.4); Eosinophils % (Auto) 2.6 % (0.0-4.3); Hematocrit 38.1 % (30.3-42.9); Hemoglobin 12.4 gm/dl (10.1-14.3); Lymphocytes # (Auto) 3.2 K/mm3 (1.2-5.4); Mean Corpuscular HGB Conc 33 % (30-34); Mean Corpuscular Volume 81 fl (79-97); Monocytes # (Auto) 1.4 K/mm3 (0.0-0.8); Monocytes % (Auto) 12.5 % (0.0-7.3); Platelet Count 274 K/mm3 (140-440); Red Cell Distribution Width 14.5 % (13.2-15.2)
[2020-01-29 18:44] LABS: BUN/Creatinine Ratio 18; Blood Urea Nitrogen 14 mg/dL (7-17); Calcium 9.5 mg/dL (8.4-10.2); Hemolysis Index 2
[2020-01-29] MEDS ORDERED: ZIPRASIDONE 20 MG CAP PO ONE (22:00)
[2020-01-29 22:42] LABS: Bilirubin,Urine NEG (Negative); Blood,Urine NEG (Negative); Color,Urine Yellow (Yellow); Mucus,Urine FEW /HPF; Protein,Urine <15 mg/dL mg/dL (Negative); Urobilinogen,Urine < 2.0 mg/dL (<2.0)
[2020-01-29 22:49] LABS: Amphetamine Screen,Urine PRESUMPTIVE NEGATIVE; Benzodiazepines Screen,Urine PRESUMPTIVE NEGATIVE; Cannabinoid Screen,Urine PRESUMPTIVE NEGATIVE; Cocaine Screen,Urine PRESUMPTIVE NEGATIVE; Methadone Screen,Urine PRESUMPTIVE NEGATIVE; Opiate Screen,Urine PRESUMPTIVE NEGATIVE
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
[2020-01-31] MEDS ORDERED: FLUoxetine 10 MG TAB PO SCH (11:00)
[2020-01-31] MEDS ORDERED: ZIPRASIDONE MESYLATE 20 MG VIAL IM PRN (11:00)
[2020-01-31] MEDS: risperiDONE 0.25 MG TAB PO SCH ×3 (12:00→22:23)
[2020-01-31] MEDS ORDERED: MELATONIN 5 MG TAB PO PRN (22:00)
[2020-01-31] MEDS: traZODone 50 MG TAB PO SCH ×2 (22:22→23:00)
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
[2020-02-01] MEDS ORDERED: FLUoxetine 10 MG TAB PO SCH (09:57)
[2020-02-01] MEDS: risperiDONE 0.25 MG TAB PO SCH ×2 (11:03→23:08)
[2020-02-01] MEDS: FLUoxetine 20 MG CAP PO SCH (11:03)
[2020-02-01] MEDS: traZODone 50 MG TAB PO SCH (23:07)
[2020-02-02] MEDS: FLUoxetine 20 MG CAP PO SCH (10:41)
[2020-02-02] MEDS: risperiDONE 0.25 MG TAB PO SCH (10:41)
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
[2020-02-02] MEDS: risperiDONE 1 MG TAB PO SCH ×2 (12:10→22:23)
[2020-02-02] MEDS: traZODone 50 MG TAB PO SCH (22:23)
[2020-02-03 11:59] VITALS: BP 130/83
== END 2020-02-02 23:26 | disposition other institution (70) ==
LOC: ED 17:36 → EEVIPCON 17:36 → ED 02-02 23:26
DX: F23 Brief psychotic disorder (principal); R41.82 Altered mental status, unspecified; E11.9 Type 2 diabetes mellitus without complications; Z90.49 Acquired absence of other specified parts of digestive tract; Z87.891 Personal history of nicotine dependence; Z79.899 Other long term (current) drug therapy
CPT/HCPCS: 36415; 80048; 80307; 80320; 81001; 84703; 85025; G0480